=== PATIENT | male | born 1935 ===

== ENCOUNTER 2016-07-31 08:53 | Inpatient (IN) | payer MEDICARE, MEDICAID ==
[2016-07-31] MEDS ORDERED: SODIUM CHLORIDE 0.9% 10 ML FLUSH FLUSH PRN (08:58)
[2016-07-31] MEDS ORDERED: HYDROmorphone 1 MG INJECTION IV ONE (08:59)
[2016-07-31 09:23] LABS: AUTOMATED BASOPHIL 0.5 % (0-2); AUTOMATED EOSINOPHIL 2.4 % (0-5); AUTOMATED LYMPH 38.7 % (17-44); AUTOMATED MONOCYTE 8.7 % (3-10); AUTOMATED NEUTROPHIL 49.7 % (45-76); MPV 7.6 fL (7.4-10.4)
--- NOTE | 2016-07-31 09:25 | EDPRACDOC ---
- General Chief Complaint: Fall Stated Complaint: FALL Time Seen by Provider: 07/31/16 08:58 Information Source: Patient, Drafting Detailer - History of Present Illness Onset: UNKNOWN HPI: PT PRESENTS TODAY VIA EMS FOR FALL FROM [facility]. UNWITNESSED FALL AND UNKNOWN DOWN TIME. PT WAS REPORTEDLY FOUND LYING ON HIS LEFT SIDE WITH HIS LEFT LEG CURLED BENEATH HIM. PT DEMENTED, BUT CURRENTLY A/O PER NORMAL. PT C/O LEFT HIP PAIN. PT UNABLE TO FULLY EXTEND LEG, BUT LEG APPEARS SHORTENED WITH EXTERNAL ROTATION. Pain Severity: Reports: Severe Injuries/Pain Location: Reports: pelvis Reason for Fall: Reports: unknown Loss of Consciousness: unsure Modifying Factors: improves with: movement Associated Symptoms (Fall): Reports: denies symptoms Allergies/Adverse Reactions: Allergies venom-honey bee [bee venom (honey bee)] Allergy (Intermediate, Verified 09:01) Hives* Home Medications: Ambulatory Orders Amlodipine Besylate [Norvasc] 10 mg PO DAILY 12/12/13 Calcium Carbonate [Calcium Antacid] 500 mg PO Q4H PRN 12/12/13 Donepezil HCl [Aricept] 10 mg PO DAILY 12/12/13 Hydrocodone Bit/Acetaminophen [[place] 5-325 Tablet] 0.5 - 1 tabs PO BID PRN 12/12 Simvastatin [Zocor] 10 mg PO HS 12/12/13 Omeprazole 40 mg PO BID 12/29/13 Aspirin [Aspirin, Chewable] 162 mg PO DAILYWM #30 tablet 01/02/14 Ranolazine [Ranexa] 500 mg PO BID #60 ext 01/02/14 Acetaminophen [Mapap] 650 mg PO Q6H PRN 07/25/16 Acetaminophen [Mapap] 650 mg PO QID PRN 07/25/16 Acetyl/Methyl-B12/Lmefolate Ca [Metafolbic Plus Caplet] 1 tab PO DAILY 07/25/16 Ascorbic Acid [Vitamin C] 500 mg PO DAILY 07/25/16 Ergocalciferol (Vitamin D2) [Vitamin D] 50,000 units PO QMONTH 07/25/16 Ferrous Sulfate [Feosol] 325 mg PO DAILY 07/25/16 Memantine HCl [Namenda] 5 mg PO BID 07/25/16 Metoprolol Tartrate [Lopressor] 12.5 mg PO BID 07/25/16 Paroxetine HCl [Paxil] 40 mg PO QHS 07/25/16 Perphenazine 2 mg PO BID 07/25/16 Polyethylene Glycol 3350 [Miralax] 17 gm PO DAILY 07/25/16 Saccharomyces Boulardii [Florastor] 250 mg PO DAILY 07/25/16 Trazodone HCl 25 mg PO Q6H PRN 07/25/16 Vit B12/Lmefolate Ca/Vit B6/B2 [l-Methyl-Mc Tablet] 1 tab PO DAILY 07/25/16 ED Past Medical History - History Reviewed Yes Nurses notes reviewed and agree except as marked - Patient Medical History Neurological History: Reports: Seizures, Dementia (alzheimers) Cardiac History: Reports: Hypertension, Heart Attack, Hypercholesterolemia GI/ History: Reports: Gastroesophageal Reflux Psychological History: Reports: Depression, Anxiety. Denies: Substance Use Disorder - Family Medical History Reports: Hypertension, Diabetes (DTG), Cancer (MOTHER OVARIAN), Stroke (SISTER) . Denies: Cardiac Disorders - Social Medical History Smoking Status: Current status unknown Social History: Denies: Substance Use Disorder EDM Review of Systems - Review of Systems ROS Negative Except as Marked: Yes All systems reviewed and were negative except as marked ROS Unobtainable: Yes Hx Limited due to age/level of understanding of patient Constitutional: No Symptoms Reported Respiratory: No Symptoms Reported Cardiovascular: No Symptoms Reported Gastrointestinal: No Symptoms Reported Neurological: No Symptoms Reported Musculoskeletal: Hip Integumentary: No Symptoms Reported - Physical Exam Constitutional: Alert (Awake), No apparent distress Oriented to: Time, Person, Place Last recorded Vital Signs: Last Vital Signs Temp 98.0 F 07/31/16 08:55 Pulse 71 07/31/16 08:55 Resp 18 07/31/16 08:55 BP 185/92 H 07/31/16 08:55 Pulse Ox 97 07/31/16 08:55 Oxygen Pulse Oxygen Saturation 97 O2 Device Oxygen Flow Rate Fraction of Inspired Oxygen ( FIO2) - HEENT Head: Normal Eye Exam: Normal Neck: Normal, Denies Pain, Midline - Respiratory/Cardiovascular Respiratory: Normal - CTA Cardiovascular: Normal, Other (NOTED BRUISING TO LEFT CHEST WALL THAT IS YELLOW FROM PREVIOUS FALL LAST WEEK; CLAVICULAR FRACTURE) - GI Palpation: Normal Tenderness: Non tender - Musculoskeletal Back: Normal Extremities: Other (SEVERE TTP TO LEFT HIP W/OUT APPARENT DEFORMITY/BRUISING; PEDAL PULSES INTACT) - Integumentary Skin: Normal Lymphatics: Normal - Neurologic Cerebellar: Unable to Test Mood Description: Normal Thought: Coherent ED Injury/Fall Exam - Physical Exam Head Injury: no evidence of injury Extremity Exam: pelvis stable, pain with movement, unable to bear weight Skin: Normal - Andrews Coma Score Best Eye Response (Lisa): (4) open spontaneously Best Verbal Response (Lisa): (5) oriented Best Motor Response (Andrews): (6) obeys commands Lisa Total: 15 - Results 07/31/16 09:00 07/31/16 09:00 - EKG EKG #1 EKG Time: 09:29 -: Yes EKG interpreted by me Rate: bpm: 69 Kenneth: LAD Rhythm: NSR Block: RBBB Hypertrophy: None ST: Normal Comparison: 07/25/16 - Departure Disposition: Admit IP To This Hospital Condition: Fair Final Diagnosis: History of fracture of clavicle Hip fracture Qualifiers: Encounter type: initial encounter Fracture type: closed Laterality: left Qualified Code(s): S72.002A - Fracture of unspecified part of neck of left femur , initial encounter for closed fracture Dementia Qualifiers: Dementia type: unspecified type Dementia behavioral disturbance: without behavioral disturbance Qualified Code(s): F03.90 - Unspecified dementia without behavioral disturbance Instructions: RICE: Routine Care for Injuries Referrals: Ray Walker MD [Primary Care Provider] - One Week Decision to Admit Time: 10:25 Decision to admit date: 07/31/16 Decision to admit: from ED
[2016-07-31 09:33] LABS: PARTIAL THROMB. TIME 23.3 SEC (22-35); PT-INR 1.1
[2016-07-31 09:43] LABS: BLOOD UREA NITROGEN 20 MG/DL (9-20); CALCIUM 9.2 MG/DL (8.4-10.2); CALCULATED OSMOLALITY 289 MOs/Kg (270-290); CHLORIDE 110 mEq/L (98-107); GLUCOSE 104 MG/DL (70-99); SODIUM LEVEL 149 mEq/L (137-146); TOTAL PROTEIN 8.1 G/DL (6.3-8.2)
--- NOTE | 2016-07-31 09:57 | DIRPT ---
ADDENDUM REPORT: 07/31/2016 16:45 ADDENDUM: Not mentioned above, is a partially visualized fracture at the distal tip of the left clavicle, better delineated on the dedicated clavicle x-rays. Also, there are left posterior third, fourth and seventh rib fractures which are better delineated on the clavicle x-rays. Electronically Signed By: Madeline Orozco On: 07/31/2016 16:45 CLINICAL DATA: Status post fall EXAM: CHEST 1 VIEW COMPARISON: 07/25/2016 FINDINGS: There is elevation of the left diaphragm. There is no focal parenchymal opacity. There is no pleural effusion or pneumothorax. The heart and mediastinal contours are unremarkable. The osseous structures are unremarkable. IMPRESSION: No active disease. Electronically Signed: By: Madeline Orozco On: 07/31/2016 09:54
--- NOTE | 2016-07-31 09:58 | DIRPT ---
CLINICAL DATA: Unwitnessed fall with left leg deformity. Initial encounter. EXAM: BILATERAL HIP (WITH PELVIS) 3-4 VIEWS COMPARISON: None. FINDINGS: Acute intertrochanteric left femur fracture with mild posterior impaction. No evidence of right hip fracture. The pelvic ring shows no fracture or diastasis. Osteopenia and atherosclerosis. IMPRESSION: Acute intertrochanteric left femur fracture. Electronically Signed By: [place] Tillman M.D. On: 07/31/2016 09:55
[2016-07-31] MEDS ORDERED: FENTANYL 100 MCG/2 ML VIAL IV ONE (10:00)
[2016-07-31] MEDS ORDERED: PROPOFOL 200 MG/20 ML VIAL IV ONE (10:00)
[2016-07-31] MEDS ORDERED: LIDOCAINE 100 MG PFS IV ONE (10:00)
--- NOTE | 2016-07-31 10:02 | DIRPT ---
CLINICAL DATA: Pain following fall EXAM: CT HEAD WITHOUT CONTRAST TECHNIQUE: Contiguous axial images were obtained from the base of the skull through the vertex without intravenous contrast. COMPARISON: November 02, 2015 FINDINGS: Moderate diffuse atrophy is stable. There is no intracranial mass, hemorrhage, extra-axial fluid collection, or midline shift. There is extensive small vessel disease throughout the centra semiovale bilaterally, stable. There is evidence of a prior small infarct at the level of the genu of the left internal capsule. No acute infarct evident. There are stable postoperative bony changes in the superior left temporal and posterior right frontal bones. Bony calvarium otherwise appears intact. Visualized mastoid air cells are clear. Visualized orbits appear symmetric and unremarkable bilaterally. IMPRESSION: Stable postoperative bony defects. Atrophy with supratentorial small vessel disease, stable. Prior small infarct at genu of left internal capsule. No intracranial mass, hemorrhage, or acute appearing infarct. No extra-axial fluid collections. Electronically Signed By: Nathanael Adan III, M.D. On: 07/31/2016 09:59
[2016-07-31] MEDS ORDERED: Albuterol/Ipratropium Neb 3 ML NEB NEB PRN (10:47)
--- NOTE | 2016-07-31 10:54 | HISTPHYS ---
- Chief Complaint left hip pain - History of Present Illness 80 yo aam brought to emergency room from care home facility for evaluation of severe left hip pain and inability to bear weight on on the left. Due to underlying dementia patient himself unable to provide any specific details. According to detention beta patient has sustained a fall early on today and landed on the left side. Patient developed severe pain and was not able to put any weight on that leg. He was brought to emergency for evaluation was found to have left-sided intertrochanteric hip fracture. Medical consultation was phoned in for inpatient treatment. - Medical History Cardiac History: Reports: Coronary Artery Disease, Hypertension, Heart Attack, Hypercholesterolemia, Valvular Heart Disease Respiratory History: Reports: COPD, Pneumonia, Emphysema GI/ History: Reports: Renal Disease, Gastroesophageal Reflux, BPH Musculoskeletal History: Reports: Osteoarthritis Systemic History: Reports: No Significant History Neurological History: Reports: Cerebrovascular Accident, Seizures, Dementia ( alzheimers) Psychological History: Reports: Depression, Anxiety. Denies: Substance Use Disorder - Medictions/Allergies Allergies venom-honey bee [bee venom (honey bee)] Allergy (Intermediate, Verified 09:01) Hives* Current Medication List: Reviewed Home Medications Amlodipine Besylate [Norvasc] 10 mg PO DAILY 12/12/13 Calcium Carbonate [Calcium Antacid] 500 mg PO Q4H PRN 12/12/13 Donepezil HCl [Aricept] 10 mg PO DAILY 12/12/13 Hydrocodone Bit/Acetaminophen [[place] 5-325 Tablet] 0.5 - 1 tabs PO BID PRN 12/12 Simvastatin [Zocor] 10 mg PO HS 12/12/13 Omeprazole 40 mg PO BID 12/29/13 Aspirin [Aspirin, Chewable] 162 mg PO DAILYWM #30 tablet 01/02/14 Ranolazine [Ranexa] 500 mg PO BID #60 ext 01/02/14 Acetaminophen [Mapap] 650 mg PO Q6H PRN 07/25/16 Acetaminophen [Mapap] 650 mg PO QID PRN 07/25/16 Acetyl/Methyl-B12/Lmefolate Ca [Metafolbic Plus Caplet] 1 tab PO DAILY 07/25/16 Ascorbic Acid [Vitamin C] 500 mg PO DAILY 07/25/16 Ergocalciferol (Vitamin D2) [Vitamin D] 50,000 units PO QMONTH 07/25/16 Ferrous Sulfate [Feosol] 325 mg PO DAILY 07/25/16 Memantine HCl [Namenda] 5 mg PO BID 07/25/16 Metoprolol Tartrate [Lopressor] 12.5 mg PO BID 07/25/16 Paroxetine HCl [Paxil] 40 mg PO QHS 07/25/16 Perphenazine 2 mg PO BID 07/25/16 Polyethylene Glycol 3350 [Miralax] 17 gm PO DAILY 07/25/16 Saccharomyces Boulardii [Florastor] 250 mg PO DAILY 07/25/16 Trazodone HCl 25 mg PO Q6H PRN 07/25/16 Vit B12/Lmefolate Ca/Vit B6/B2 [l-Methyl-Mc Tablet] 1 tab PO DAILY 07/25/16 - Family History Reports: Hypertension, Diabetes (DTG), Cancer (MOTHER OVARIAN), Stroke (SISTER) . Denies: Cardiac Disorders - Social History Travel Outside of [place] in the Last 3 Months?: No Lives: in Penitentiary/SNF Smoking Status: Current status unknown Social History: Denies: Substance Use Disorder - Review of Systems Constitutional: Loss of Appetite, Weakness Eyes: No Symptoms Reported Ears: No Symptoms Reported Nose: No Symptoms Reported Mouth: No Symptoms Reported Throat/Neck: No Symptoms Reported Respiratory: Cough, Dyspnea Cardiovascular: No Symptoms Reported Gastrointestinal: Constipation, Heartburn Genitourinary: Nocturia Neurological: Dizziness, Gait Difficulty, Weakness, Mood Changes, Memory Changes , Changes in Orientation Musculoskeletal:: Arthritis Integumentary: No Symptoms Reported Allergic/Immunologic: No Symptoms Reported Hematologic: No Symptoms Reported Endocrine: No Symptoms Reported Psychiatric: No Symptoms Reported - Physical Exam Vital Signs: Initial Vitals Temperature 98.0 F 07/31/16 08:55 Pulse Rate 71 07/31/16 08:55 Respiratory Rate 18 07/31/16 08:55 Blood Pressure 185/92 H 07/31/16 08:55 Pulse Oxygen Saturation 97 07/31/16 08:55 - Focused CV Perfusion Exam Vital Signs: Last Vital Signs Temp 98.0 F 07/31/16 08:55 Pulse 71 07/31/16 08:55 Resp 18 07/31/16 08:55 BP 185/92 H 07/31/16 08:55 Pulse Ox 97 07/31/16 08:55 - Diagnostic Findings Allergies venom-honey bee [bee venom (honey bee)] Allergy (Intermediate, Verified 09:01) Hives* Initial Vitals Temperature 98.0 F 07/31/16 08:55 Pulse Rate 71 07/31/16 08:55 Respiratory Rate 18 07/31/16 08:55 Blood Pressure 185/92 H 07/31/16 08:55 Pulse Oxygen Saturation 97 07/31/16 08:55 07/31/16 09:00 07/31/16 09:00 Abnormal Lab Results 07/31/16 07/31/16 09:00 09:00 RBC 3.79 L Hgb 12.9 L D Hct 37.4 L MCV 99 H MCH 33.9 H Sodium 149 H Chloride 110 H Glucose 104 H ALT 20 L Last Vital Signs Temp 98.0 F 07/31/16 08:55 Pulse 71 07/31/16 08:55 Resp 18 07/31/16 08:55 BP 185/92 H 07/31/16 08:55 Pulse Ox 97 07/31/16 08:55 Patient Name: KATTY LICEA LOC: ED : 1935 AGE: 80 Order Date:07/31/16 Date of Service:12/10 Report # [id number] Ord Physician: Gisela Pearce Exam # [id number] Emergency Physician: Lupillo Dawson DO Exam(s): [id number] RAD/DG HIP COMPLETE 2+V-BILAT CLINICAL DATA: Unwitnessed fall with left leg deformity. Initial encounter. EXAM: BILATERAL HIP (WITH PELVIS) 3-4 VIEWS COMPARISON: None. FINDINGS: Acute intertrochanteric left femur fracture with mild posterior impaction. No evidence of right hip fracture. The pelvic ring shows no fracture or diastasis. Osteopenia and atherosclerosis. IMPRESSION: Acute intertrochanteric left femur fracture. Electronically Signed By: [place] Tillman M.D. On: 07/31/2016 09:55 Patient Name: KATTY LICEA LOC: ED : 1935 AGE: 80 Order Date:07/31/16 Date of Service:12/10 Report # [id number] Ord Physician: Gisela Pearce Exam # [id number] Emergency Physician: Lupillo Dawson DO Exam(s): [id number] CT/CT HEAD W/O CM CLINICAL DATA: Pain following fall EXAM: CT HEAD WITHOUT CONTRAST TECHNIQUE: Contiguous axial images were obtained from the base of the skull through the vertex without intravenous contrast. COMPARISON: November 02, 2015 FINDINGS: Moderate diffuse atrophy is stable. There is no intracranial mass, hemorrhage, extra-axial fluid collection, or midline shift. There is extensive small vessel disease throughout the centra semiovale bilaterally, stable. There is evidence of a prior small infarct at the level of the genu of the left internal capsule. No acute infarct evident. There are stable postoperative bony changes in the superior left temporal and posterior right frontal bones. Bony calvarium otherwise appears intact. Visualized mastoid air cells are clear. Visualized orbits appear symmetric and unremarkable bilaterally. IMPRESSION: Stable postoperative bony defects. Atrophy with supratentorial small vessel disease, stable. Prior small infarct at genu of left internal capsule. No intracranial mass, hemorrhage, or acute appearing infarct. No extra-axial fluid collections. Electronically Signed By: Nathanael Adan III, M.D. On: 07/31/2016 09:59 Electronically Signed By: Nathanael Adan III, MD Patient Name: KATTY LICEA LOC: ED : 1935 AGE: 80 Order Date:07/31/16 Date of Service:12/10 Report # [id number] Ord Physician: Gisela Pearce Exam # [id number] Emergency Physician: Lupillo Dawson DO Exam(s): [id number] RAD/DG CHEST 1V CLINICAL DATA: Status post fall EXAM: CHEST 1 VIEW COMPARISON: 07/25/2016 FINDINGS: There is elevation of the left diaphragm. There is no focal parenchymal opacity. There is no pleural effusion or pneumothorax. The heart and mediastinal contours are unremarkable. The osseous structures are unremarkable. IMPRESSION: No active disease. Electronically Signed By: Madeline Orozco On: 07/31/2016 09:54 Electronically Signed By: Madeline Orozco MD Electronically Signed Date/Time: [id number] Dictate Date/Time: 07/31/16 0953 - Assessment (1) Closed left hip fracture S72.002A - FRACTURE OF UNSP PART OF NECK OF LEFT FEMUR, INIT Acute Present on Admission: Yes Qualifiers: Encounter type: initial encounter Qualified Code(s): S72.002A - Fracture of unspecified part of neck of left femur, initial encounter for closed fracture Patient be admitted to medical monitor bed. Ortho has been consulted and will defer management this problem to Orthopedics. (2) Dementia F03.90 - UNSPECIFIED DEMENTIA WITHOUT BEHAVIORAL DISTURBANCE Chronic Present on Admission: Yes Qualifiers: Dementia type: unspecified type Dementia behavioral disturbance: without behavioral disturbance Qualified Code(s): F03.90 - Unspecified dementia without behavioral disturbance Continue supportive care and medications. Patient at high risk for in-hospital delirium and may require chemical and or physical restraints for safety (3) GERD (gastroesophageal reflux disease) K21.9 - GASTRO-ESOPHAGEAL REFLUX DISEASE WITHOUT ESOPHAGITIS Chronic Present on Admission: Yes Qualifiers: Esophagitis presence: without esophagitis Qualified Code(s): K21.9 - Gastro -esophageal reflux disease without esophagitis Continue PPI (4) Left hip pain M25.552 - PAIN IN LEFT HIP Acute Present on Admission: Yes Will scheduled Tylenol around the clock and p.r.n. morphine and oxycodone. (5) CVA (cerebral vascular accident) I63.9 - CEREBRAL INFARCTION, UNSPECIFIED Chronic Present on Admission: Yes Qualifiers: Laterality of affected vessel: right Continue aspirin monitor neuro status (6) CAD (coronary artery disease) I25.10 - ATHSCL HEART DISEASE OF [place] CORONARY ARTERY W/O ANG PCTRS Chronic Present on Admission: Yes Qualifiers: Coronary Disease-Associated Artery/Lesion type: [place] artery [place] vs. transplanted heart: [place] heart Associated angina: without angina Qualified Code(s): I25.10 - Atherosclerotic heart disease of [place] coronary artery without angina pectoris Stable on medical therapy at lower activity level. (7) Dyslipidemia E78.5 - HYPERLIPIDEMIA, UNSPECIFIED Chronic Present on Admission: Yes (8) Osteoporosis M81.0 - AGE-RELATED OSTEOPOROSIS W/O CURRENT PATHOLOGICAL FRACTURE Chronic Present on Admission: Yes Continue Zocor (9) Adult failure to thrive R62.7 - ADULT FAILURE TO THRIVE Chronic Present on Admission: Yes Continue nutritional support (10) HTN (hypertension) I10 - ESSENTIAL (PRIMARY) HYPERTENSION Chronic Present on Admission: Yes Qualifiers: Hypertension type: essential hypertension Qualified Code(s): I10 - Essential (primary) hypertension Continue meds keep SBP around 140 (11) Fracture of clavicle, left, closed S42.002A - FRACTURE OF UNSP PART OF LEFT CLAVICLE, INIT FOR CLOS FX Acute Qualifiers: Encounter type: initial encounter Clavicle location: lateral end Fracture alignment: displaced Qualified Code(s): S42.032A - Displaced fracture of lateral end of left clavicle, initial encounter for closed fracture Continue splint (12) UTI (urinary tract infection) N39.0 - URINARY TRACT INFECTION, SITE NOT SPECIFIED Suspected Present on Admission: Yes Qualifiers: Urinary tract infection type: acute cystitis Recent treatment of antibiotic for UTI. UA and urine culture will be obtained Case Care Discussed with: Patient, Consultants, Nursing Staff, Gas Flow Regulator Total Time: 60 min. Critical Care: No Code: 12138 (12+)
[2016-07-31] MEDS: FERROUS SULFATE 324 MG TAB PO SCH (12:21)
[2016-07-31] MEDS: VITAMINS,PRENATAL TABLET PO SCH (12:21)
[2016-07-31] MEDS: ASCORBIC ACID 500 MG TAB PO SCH (12:21)
[2016-07-31] MEDS: PROBIOTIC BLEND TAB PO SCH (12:21)
[2016-07-31] MEDS ORDERED: MORPHINE 2 MG/ML INJECTION IV PRN (12:58)
[2016-07-31] MEDS ORDERED: MORPHINE 2 MG/ML INJECTION IV ONE (13:01)
--- NOTE | 2016-07-31 13:10 | PCM.ORTHCO ---
Consultation Date: 07/31/16 Reason for Consult: Fracture (LEFT HIP) - History of Present Illness Mr. Canales is an 80 year old male who presents with left hip pain following a fall this morning. He was found lying on the floor this morning at his rehab facility. He is unable to bear weight on the left side. He ambulates without AD prior to his injury. He does have a history of worsening dementia. His daughter provided much of the information. Patient was recently diagnosed with a left clavicle fracture as well and is currently being treated for pneumonia. He denies SOB or chest pain. Chief Complaint: left hip pain - Past Medical and Surgical History Cardiac History: Reports: Hypertension, Heart Attack Psychological History: Reports: Depression, Anxiety Neurological History: Reports: Cerebrovascular Accident, Seizures, Dementia Allergies venom-honey bee [bee venom (honey bee)] Allergy (Intermediate, Verified 09:01) Hives* Home Medications Amlodipine Besylate [Norvasc] 10 mg PO DAILY 12/12/13 Calcium Carbonate [Calcium Antacid] 1,000 mg PO DAILY 12/12/13 Donepezil HCl [Aricept] 10 mg PO DAILY 12/12/13 Simvastatin [Zocor] 10 mg PO HS 12/12/13 Aspirin [Aspirin, Chewable] 162 mg PO DAILYWM #30 tablet 01/02/14 Ranolazine [Ranexa] 500 mg PO BID #60 ext 01/02/14 Acetaminophen [Mapap] 650 mg PO Q6H PRN 07/25/16 Acetaminophen [Mapap] 650 mg PO Q8H PRN 07/25/16 Acetyl/Methyl-B12/Lmefolate Ca [Metafolbic Plus Caplet] 1 tab PO DAILY 07/25/16 Ascorbic Acid [Vitamin C] 500 mg PO DAILY 07/25/16 Ferrous Sulfate [Feosol] 325 mg PO DAILY 07/25/16 Memantine HCl [Namenda] 5 mg PO BID 07/25/16 Metoprolol Tartrate [Lopressor] 12.5 mg PO BID 07/25/16 Paroxetine HCl [Paxil] 40 mg PO QHS 07/25/16 Perphenazine 2 mg PO BID 07/25/16 Polyethylene Glycol 3350 [Miralax] 17 gm PO DAILY 07/25/16 Saccharomyces Boulardii [Florastor] 250 mg PO DAILY 07/25/16 Trazodone HCl 25 mg PO Q6H PRN 07/25/16 Vit B12/Lmefolate Ca/Vit B6/B2 [l-Methyl-Mc Tablet] 1 tab PO DAILY 07/25/16 Calcium Carbonate 1,000 mg PO Q4H PRN 07/31/16 Cholecalciferol (Vitamin D3) [Optimal D3] 50,000 unit PO .MONTHLY ON THE Ertapenem [Invanz] 1 gm IM DAILY 07/31/16 Omeprazole [Prilosec] 20 mg PO BID 07/31/16 - Social History Smoking Status: Current status unknown - Family History Reports: Hypertension, Diabetes (DTG), Cancer (MOTHER OVARIAN), Stroke (SISTER) . Denies: Cardiac Disorders - Review of Systems Yes Hx Limited due to age/level of understanding of patient Respiratory: negative: Shortness of Breath Cardiovascular: negative: Chest Pain Musculoskeletal:: Joint Pain (left hip) - Physical Exam Vital Signs: Initial Vitals Temperature 98.0 F 07/31/16 08:55 Pulse Rate 71 07/31/16 08:55 Respiratory Rate 18 07/31/16 08:55 Blood Pressure 185/92 H 07/31/16 08:55 Pulse Oxygen Saturation 97 07/31/16 08:55 Constitutional: No apparent distress, Confused, Well appearing Oriented to: Not Oriented - HEENT Head: Normal - Musculoskeletal Extremities: Pedal Pulse, Other (LLE is shortened and externally rotated. Plantarflexion and dorsiflexion intact. SITLT.). negative: Calf Tenderness - Neurologic Mood Description: Normal - Lab Results 07/31/16 09:00 07/31/16 09:00 - Diagnostic Findings Exam(s): [id number] RAD/DG HIP COMPLETE 2+V-BILAT CLINICAL DATA: Unwitnessed fall with left leg deformity. Initial encounter. EXAM: BILATERAL HIP (WITH PELVIS) 3-4 VIEWS COMPARISON: None. FINDINGS: Acute intertrochanteric left femur fracture with mild posterior impaction. No evidence of right hip fracture. The pelvic ring shows no fracture or diastasis. Osteopenia and atherosclerosis. IMPRESSION: Acute intertrochanteric left femur fracture. Electronically Signed By: [place] Tillmna M.D. On: 07/31/2016 09:55 Electronically Signed By: Jefe Tillman MD Electronically Signed Date/Time: [id number] Dictate Date/Time: 07/31/16 0954 - Assessment/Plan (1) Hip fracture S72.009A - FRACTURE OF UNSP PART OF NECK OF UNSP FEMUR, INIT Acute initial encounter closed left S72.002A - Fracture of unspecified part of neck of left femur, initial encounter for closed fracture Case Care Discussed with: Patient, Family Plan: Risks and benefits of surgery discussed with patient and family. Risks include but not limited to infection, damage to blood vessels and nerves, need for further surgery, blood clots, and risks of anesthesia. Agree to proceed. Plan for IM tex left hip with Dr. Holcomb later today Continue pain management NPO Strict bed rest. Will plan to place patient into sling for left arm and will further work-up his left clavicle fracture post-operatively
[2016-07-31] MEDS ORDERED: CHLORHEXIDINE (HIBICLENS) 4 OZ BOTTLE TOP ONE ×2 (14:00→21:00)
[2016-07-31] MEDS ORDERED: CEFAZOLIN 1 GM VIAL IV ONE (14:00)
[2016-07-31] MEDS ORDERED: HYDROmorphone 1 MG INJECTION IV PRN ×2 (14:12)
[2016-07-31] MEDS ORDERED: ONDANSETRON HCL 4 MG ODT TAB PO PRN (14:12)
[2016-07-31] MEDS ORDERED: LABETALOL 20 MG/4 ML SYRINGE IV PRN (14:12)
[2016-07-31] MEDS ORDERED: FENTANYL 100 MCG/2 ML VIAL IV PRN ×2 (14:12)
[2016-07-31] MEDS ORDERED: ONDANSETRON HCL 4 MG/2 ML VIAL IV PRN (14:12)
[2016-07-31] MEDS ORDERED: hydrALAZINE 20 MG/ML VIAL IV PRN (14:12)
--- NOTE | 2016-07-31 14:13 | SC.ANESPOS ---
Post-Anesthesia Note LOC: Drowsy Post-Anesthesia Assessment: Awake, Returned to Baseline, Hemodynamically Stable , Pain Control Adequate Phase I & II Recovery Complete: Yes Apparent Anesthesia Complication: No : N - Vital Signs Blood Pressure: 150/92 Pulse: 87 Resp Rate: 16 O2 Sat: 96 Temp: 98 F
--- NOTE | 2016-07-31 14:19 | HIM.ANES ---
Anesthesia Evaluation & Plan - Focused Review of Systems Cardiac History: Yes: Hx Hypertension, Hx Heart Attack, Hx Cardiac Disorders, Hx Abnormal Cholesterol/Hyperlipidemia, Hx Cardiomegaly HEENT: Yes: Cataracts, Temporomandibular Joint Disease (TMJ) Respiratory: Yes: Hx Snoring Gastrointestinal: Yes: Hx Gastroesophageal Reflux Disease, Hx Colonoscopy Neurological/Musculoskeletal: Yes: HX Cerebrovascular Accident, Hx Alzheimer's Disease, Hx Dementia, Hx Seizures, Hx Migraine Psychological: Yes Hx Anxiety, Yes Hx Depression HX Other Psyco/Soc Problems: DEPRESSION Blood/Autoimmune: No: Hx Blood Transfusions Smoking Status: Current status unknown Past Social History: Denies: Substance Use Disorder - Focused Physical Exam NPO since: midnight Mallampati: Class II Thyromental Distance: Greater than 3 Neck: Full Range of Motion Dental: Removable Dental Work Cardiovascular/Chest: Normal Respiratory: Lungs clear Any problems with anesthesia, including nausea and vomiting?: No Any relatives with a history of Malignant Hyperthermia?: No Beta Juanpablo given (if appropriate): N/A Other: Problem List Problem Status Onset CVA (cerebral vascular accident) Acute Closed left hip fracture Acute GERD (gastroesophageal reflux disease) Acute Hip fracture Acute History of fracture of clavicle Acute Left hip pain Acute Adult failure to thrive Chronic CAD (coronary artery disease) Chronic Dementia Chronic Dyslipidemia Chronic Osteoporosis Chronic Advanced dementia Acute Chest pain Acute Chest wall pain Acute PT/PTT/INR/ PT 11.0 SEC (9.2-11.2) 07/31/16 09:00 INR 1.1 07/31/16 09:00 APTT 23.3 SEC (22-35) 07/31/16 09:00 Allergies Allergy/AdvReac Type Severity Reaction Status Date / Time venom-honey bee Allergy Intermediate Hives* Verified 07/31/16 09:01 [bee venom (honey bee)] Home Medications Medication Instructions Recorded Last Taken Type Amlodipine Besylate [Norvasc] 10 mg PO DAILY 12/12/13 07/30/16 09:00 History Calcium Carbonate [Calcium Antacid] 1,000 mg PO DAILY 12/12/13 07/30/16 08:00 History Donepezil HCl [Aricept] 10 mg PO DAILY 12/12/13 07/30/16 09:00 History Simvastatin [Zocor] 10 mg PO HS 12/12/13 07/30/16 21:00 History Aspirin [Aspirin, Chewable] 162 mg PO DAILYWM #30 tablet 01/02/14 07/30/16 09: 00 Rx Ranolazine [Ranexa] 500 mg PO BID #60 ext 01/02/14 07/30/16 21:00 Rx Acetaminophen [Mapap] 650 mg PO Q6H PRN 07/25/16 07/24/16 History Acetaminophen [Mapap] 650 mg PO Q8H PRN 07/25/16 07/31/16 History Acetyl/Methyl-B12/Lmefolate Ca 1 tab PO DAILY 07/25/16 07/30/16 09:00 History [Metafolbic Plus Caplet] Ascorbic Acid [Vitamin C] 500 mg PO DAILY 07/25/16 07/30/16 09:00 History Ferrous Sulfate [Feosol] 325 mg PO DAILY 07/25/16 07/30/16 09:00 History Memantine HCl [Namenda] 5 mg PO BID 07/25/16 07/30/16 21:00 History Metoprolol Tartrate [Lopressor] 12.5 mg PO BID 07/25/16 07/30/16 21:00 History Paroxetine HCl [Paxil] 40 mg PO QHS 07/25/16 07/30/16 21:00 History Perphenazine 2 mg PO BID 07/25/16 07/30/16 21:00 History Polyethylene Glycol 3350 [Miralax] 17 gm PO DAILY 07/25/16 07/30/16 09:00 History Saccharomyces Boulardii [Florastor] 250 mg PO DAILY 07/25/16 07/30/16 09:00 History Trazodone HCl 25 mg PO Q6H PRN 07/25/16 06/30/16 History Vit B12/Lmefolate Ca/Vit B6/B2 1 tab PO DAILY 07/25/16 07/30/16 09:00 History [l-Methyl-Mc Tablet] Calcium Carbonate 1,000 mg PO Q4H PRN 07/31/16 Unknown History Cholecalciferol (Vitamin D3) 50,000 unit PO .MONTHLY ON THE 07/31/16 Unknown History [Optimal D3] Ertapenem [Invanz] 1 gm IM DAILY 07/31/16 07/30/16 21:00 History Omeprazole [Prilosec] 20 mg PO BID 07/31/16 07/31/16 06:00 History Height and Weight Patient's weight 135 lb 9 oz Weight (Calculated Kilograms) 61.490 Vital Signs Temperature 98 F 07/31/16 14:13 Pulse Rate 87 07/31/16 14:13 Respiratory Rate 16 07/31/16 14:13 Blood Pressure 150/92 07/31/16 14:13 Pulse Oxygen Saturation 96 07/31/16 14:13 - Anesthetic Plan Anesthesia Type: General ASA Class: 4 -: I have examined this patient and reviewed the medical record. The patient has been assessed prior to anesthesia. Risks and benefits of anesthesia and anesthetic technique options have been discussed and all questions answered. The patient accepts the risk and desires me to proceed with the planned anesthetic.
--- NOTE | 2016-07-31 15:38 | HIMOPRPT ---
DATE OF PROCEDURE: 07/31/16 PREOPERATIVE DIAGNOSIS: Left hip intertrochanteric fracture. POSTOPERATIVE DIAGNOSIS: Left hip intertrochanteric fracture. PROCEDURE PERFORMED: Left hip gamma nail, hip intramedullary nail. SURGEON: Saroj Holcomb MD. SKEIN BLEACHER: LANDON Barnes ANESTHESIA: General endotracheal Anesthesia. IV FLUIDS: Crystalloids ESTIMATED BLOOD LOSS: 50 ml SPECIMENS: none. COMPLICATIONS: None. IMPLANTS: Titanium [employer] [place] gamma 3 nail [id number] millimeters long, proximal locking screw 100 millimeters long, BRIEF HISTORY: KATTY LICEA is a 80 year-old M patient. Patient has history of dementia and is currently a resident at [facility] at the rehab. He apparently was found on the floor. He had complaints of left hip pain. X-rays showed evidence of left hip intertrochanteric fracture. Based on the nature of the fracture, intramedullary nailing was recommended for right hip intertrochanteric fracture. Informed consent was obtained from the patient. The patient understood that the risks involved in surgery include infection, damage to the nerve, blood vessel, need for further surgery, implant failure, continued pain, DVT, pulmonary embolism, stroke, and even . The patient was seen on the day of surgery in the preop holding area. Surgical site was marked. The patient was then wheeled back into the operating room. DESCRIPTION OF THE PROCEDURE: Proper time-out was performed. 2 grams of IV Ancef were given. The patient was given proper anesthesia. Left lower extremity was placed in traction and right lower extremity was placed in well- leg gonzalez. The left lower extremity was prepped and draped. We started with an incision proximal to the greater trochanter. AP and lateral C-arm images were used. Entrance was created using a curved bone awl. We then inserted a guidewire across the fracture site into the distal fragment. The femur was then reamed. We reamed up to 14.5 millimeter diameter reamer. We then measured the size of the nail as [id number] millimeters long nail. We then procured if 400 millimeters gamma 3 nail and this was inserted in an antegrade fashion. This nail was 125 degrees neck shaft angle. We then drilled for the proximal lag screw. The length of the lag screw was measured at 100 millimeters. We then inserted a 100-millimeter long lag screw proximally. The nail was locked in place. We then placed a distal static lock through the distal part of the nail using freehand technique. Final AP and lateral x-rays were obtained. The wound was copiously irrigated with normal saline and closed in layers. The patient tolerated the procedure very well and was taken to the recovery room in stable condition. DISPOSITION: . The patient would also be started on [Aspirin 325mg Bid] .
--- NOTE | 2016-07-31 16:38 | DIRPT ---
CLINICAL DATA: Fall, possible fracture EXAM: LEFT CLAVICLE - 2+ VIEWS COMPARISON: 07/25/2016 FINDINGS: There is mild displaced fracture distal aspect of the left clavicle. Mild displaced fracture left third, fourth, fifth and seventh rib. IMPRESSION: Mild displaced fracture of distal aspect left clavicle. Minimal displaced fracture of the left third, fourth fifth and seventh rib. Electronically Signed By: Fabio Gordillo M.D. On: 07/31/2016 16:36
[2016-07-31] MEDS: D5W/NS 1,000 ML IV SCH ×2 (16:57)
[2016-07-31] MEDS ORDERED: ENOXAPARIN 40 MG/0.4 ML PFS SQ SCH (18:00)
[2016-07-31] MEDS ORDERED: Vaccine Screening Complete SCH ×2 (19:00→22:00)
[2016-07-31] MEDS ORDERED: PAROXETINE HCL 40 MG PO SCH (21:00)
[2016-07-31] MEDS: METOPROLOL TARTRATE 25 MG TAB PO SCH (21:40)
[2016-07-31] MEDS: MEMANTINE 5 MG TAB PO SCH (21:40)
[2016-07-31] MEDS: PERPHENAZINE 2 MG TAB PO SCH (21:40)
[2016-07-31] MEDS: PAROXETINE 20 MG TAB PO SCH (21:41)
[2016-07-31] MEDS: TRAZODONE 50 MG TAB PO PRN (21:41)
[2016-07-31] MEDS: RANOLAZINE 500 MG EXT RELEASE TAB PO SCH (21:41)
[2016-07-31] MEDS: SIMVASTATIN 10 MG TAB PO SCH (21:42)
[2016-08-01] MEDS: D5W/NS 1,000 ML IV SCH ×2 (04:59→11:10)
[2016-08-01] MEDS: PANTOPRAZOLE 40 MG TAB PO SCH (04:59)
[2016-08-01 05:15] LABS: LEUKOCYTES/URINE NEG (NEGATIVE); NITRITE/URINE NEG (NEGATIVE); URINE OCCULT BLOOD NEG (NEG/TRACE)
[2016-08-01] MEDS ORDERED: CEFAZOLIN 1 GM VIAL IV ONE (07:00)
[2016-08-01 07:09] LABS: AUTOMATED BASOPHIL 0.1 % (0-2); AUTOMATED LYMPH 20.1 % (17-44); AUTOMATED MONOCYTE 11.1 % (3-10); AUTOMATED NEUTROPHIL 68.7 % (45-76); MPV 7.9 fL (7.4-10.4)
--- NOTE | 2016-08-01 07:17 | PCM.ORTHBL ---
- Subjective Post Op Day: 1 Daily Assessment - Patient: Reports: No new complaints, Still having pain, Pain is less, Other (History is difficult given mental status). Denies: Shortness of breath, Nausea, Vomiting - Objective / Physical Exam Vital Signs: Temperature: 98.6 F (08/01/16 06:00) HR: 85 (08/01/16 06:00)RR: 18 (08/01/16 06: 00) BP: 93/57 (08/01/16 06:00)Pulse Ox: 98 (08/01/16 06:00) General: Alert, Cooperative, No acute distress, Well appearing Musculoskeletal / Extremities: 2 plus Dorsalis Pedis Pulse, Dressing Clean/Dry/ Intact. negative: Tenderness (no calf tenderness) Neurological: Positive Sensation First Dorsal Web Space, Sensation to light touch intact, Extensor Hallicus Longus Intact, Flexor Hallicus Longus Intact, Dorsiflexion Intact, Plantarflexion Intact Laboratory/Diagnostics Reviewed: Exam(s): [id number] RAD/DG CLAVICLE-L CLINICAL DATA: Fall, possible fracture EXAM: LEFT CLAVICLE - 2+ VIEWS COMPARISON: 07/25/2016 FINDINGS: There is mild displaced fracture distal aspect of the left clavicle. Mild displaced fracture left third, fourth, fifth and seventh rib. IMPRESSION: Mild displaced fracture of distal aspect left clavicle. Minimal displaced fracture of the left third, fourth fifth and seventh rib. Electronically Signed By: Fabio Gordillo M.D. On: 07/31/2016 16:36 - Assessment and Plan (1) Hip fracture Acute S72.009A - FRACTURE OF UNSP PART OF NECK OF UNSP FEMUR, INIT initial encounter closed left S72.002A - Fracture of unspecified part of neck of left femur, initial encounter for closed fracture (2) Fracture of clavicle, left, closed Acute S42.002A - FRACTURE OF UNSP PART OF LEFT CLAVICLE, INIT FOR CLOS FX initial encounter lateral end displaced S42.032A - Displaced fracture of lateral end of left clavicle, initial encounter for closed fracture Plan: POD#1 s/p left IM nail PT/OT/WBAT; NWB LUE TEDS/SCDS/Lovenox for 14 days post-op for DVT prophylaxis Continue pain management Given appearane of his mildly displaced clavicular fracture, will allow out of sling and attempt weightbearing as tolerated on LUE to aid in ambulation with walker at this time. D/C planning
[2016-08-01 07:35] LABS: BLOOD UREA NITROGEN 33 MG/DL (9-20); CALCIUM 8.8 MG/DL (8.4-10.2); CALCULATED OSMOLALITY 295 MOs/Kg (270-290); CHLORIDE 111 mEq/L (98-107); GLUCOSE 138 MG/DL (70-99); SODIUM LEVEL 149 mEq/L (137-146)
[2016-08-01] MEDS ORDERED: FLU VACCINE (Afluria) 0.5 ML DOSE IM ONE ×2 (08:00)
[2016-08-01] MEDS: ASPIRIN (CHEWABLE) 81 MG TAB PO SCH (08:44)
[2016-08-01] MEDS: METOPROLOL TARTRATE 25 MG TAB PO SCH ×2 (08:45→20:56)
[2016-08-01] MEDS: PEG-ELECTROLYTE 17 GM PACK PO SCH (08:45)
[2016-08-01] MEDS: DONEPEZIL HCL 10 MG TAB PO SCH (08:45)
[2016-08-01] MEDS: MEMANTINE 5 MG TAB PO SCH ×2 (08:46→20:30)
[2016-08-01] MEDS: AMLODIPINE 10 MG TAB PO SCH (08:46)
[2016-08-01] MEDS: PERPHENAZINE 2 MG TAB PO SCH ×2 (08:46→20:30)
[2016-08-01] MEDS: RANOLAZINE 500 MG EXT RELEASE TAB PO SCH ×2 (08:48→20:30)
[2016-08-01] MEDS ORDERED: LMEFOLATE CA PO SCH ×2 (09:00)
[2016-08-01] MEDS ORDERED: [UNRECOGNIZED DRUG - OTHER] PO SCH (09:00)
[2016-08-01] MEDS ORDERED: METHYL B12 PO SCH (09:00)
[2016-08-01] MEDS ORDERED: ACETYL PO SCH (09:00)
[2016-08-01] MEDS ORDERED: SACCHAROMYCES BOULARDII 250 MG PO SCH (09:00)
[2016-08-01] MEDS ORDERED: B2 PO SCH (09:00)
[2016-08-01] MEDS ORDERED: VIT B6 PO SCH (09:00)
[2016-08-01] MEDS ORDERED: Non-Formulary Medication ITEM (Ferrous Sulfate [Feosol] 325 MG) PO SCH (09:00)
[2016-08-01] MEDS ORDERED: [UNRECOGNIZED DRUG - OTHER] PO SCH (09:00)
[2016-08-01] MEDS ORDERED: VIT B12 PO SCH (09:00)
[2016-08-01] MEDS: VITAMINS,PRENATAL TABLET PO SCH (11:37)
[2016-08-01] MEDS: FERROUS SULFATE 324 MG TAB PO SCH (11:37)
[2016-08-01] MEDS: PROBIOTIC BLEND TAB PO SCH (11:38)
[2016-08-01] MEDS: ASCORBIC ACID 500 MG TAB PO SCH (11:39)
[2016-08-01] MEDS ORDERED: D5W/NS 1,000 ML IV SCH (12:00)
[2016-08-01] MEDS ORDERED: Medication Special Instructions SCH ×2 (12:00)
[2016-08-01] MEDS: D5-1/2NS/KCL 20 mEq 1,000 ML IV SCH ×2 (16:19→20:59)
[2016-08-01] MEDS ORDERED: ENOXAPARIN 30 MG/0.3 ML PFS SQ SCH (18:00)
[2016-08-01] MEDS: OXYCODONE HCL 5 MG TABLET PO PRN (20:29)
[2016-08-01] MEDS: SIMVASTATIN 10 MG TAB PO SCH (20:31)
[2016-08-01] MEDS: PAROXETINE 20 MG TAB PO SCH (20:56)
--- NOTE | 2016-08-01 21:42 | GENMEDPROG ---
Subjective Note: Patient in bed responsive follows commands. Disoriented and confabulatory. Left hip pain control. Denies and difficulties breathing cough phlegm production. No behavior problems related dementia no anger agitation or hostility. P.o. intake poor Notes Reviewed: Yes Events from last night noted and discussed with Clinical Staff Current Medication List: Reviewed Currently: Reports: SCHMITT, Constipation - Physical Examination Vital Signs and I&O: Last Vital Signs Temp 98.7 F 08/01/16 15:40 Pulse 80 08/01/16 15:40 Resp 20 08/01/16 15:40 BP 107/67 08/01/16 15:40 Pulse Ox 97 08/01/16 10:15 Oxygen Pulse Oxygen Saturation 97 O2 Device Room Air Oxygen Flow Rate 10 Fraction of Inspired Oxygen ( FIO2) Intake & Output 07/29/16 07/30/16 07/31/16 08/01/16 23:59 23:59 23:59 23:59 Intake Total 383 1350 Output Total 50 Balance 333 1350 Patient's weight 61.49 kg 61.802 kg General: Alert, Cooperative, No acute distress, Well appearing HEENT: Normal, PERRLA, EOMI, Anicteric Sclera Neck: Non-tender, Normal Trachea alignment, Limited range of motion Lymphatics: Normal Respiratory: Diminished, Rhonchi Cardiovascular: Regular rate, Normal S1, Normal S2, Murmurs GI: Normal bowel sounds, Soft, Non tender, No hepatospenomegaly, No masses Extremities/Musculoskeletal: Edema, DJD Skin: Warm,Dry and Intact, No rashes, No breakdown, No significant lesion Neurological: Normal speech, Cranial nerves 3-12 NL Psych/Mental Status: Confabulating, Confused, Disoriented Lab/DI/Studies Reviewed: Allergies venom-honey bee [bee venom (honey bee)] Allergy (Intermediate, Verified 09:01) Hives* 08/01/16 06:40 08/01/16 06:40 - Assessment (1) Closed left hip fracture Acute S72.002A - FRACTURE OF UNSP PART OF NECK OF LEFT FEMUR, INIT Qualifiers: Encounter type: initial encounter Qualified Code(s): S72.002A - Fracture of unspecified part of neck of left femur, initial encounter for closed fracture Comment/Plan: Status post surgical repair. Continue postop ortho care. Continue PTOT (2) Acute kidney injury Acute N17.9 - ACUTE KIDNEY FAILURE, UNSPECIFIED Comment/Plan: Creatinine up to 1.9 today. Maintain hydration avoid any nephrotoxins monitor BMP (3) Dementia Chronic F03.90 - UNSPECIFIED DEMENTIA WITHOUT BEHAVIORAL DISTURBANCE Qualifiers: Dementia type: unspecified type Dementia behavioral disturbance: without behavioral disturbance Qualified Code(s): F03.90 - Unspecified dementia without behavioral disturbance Comment/Plan: Continue supportive care and medications. No significant behavior problems (4) GERD (gastroesophageal reflux disease) Chronic K21.9 - GASTRO-ESOPHAGEAL REFLUX DISEASE WITHOUT ESOPHAGITIS Qualifiers: Esophagitis presence: without esophagitis Qualified Code(s): K21.9 - Gastro -esophageal reflux disease without esophagitis Comment/Plan: Continue PPI (5) Left hip pain Acute M25.552 - PAIN IN LEFT HIP Comment/Plan: Will scheduled Tylenol around the clock and p.r.n. morphine and oxycodone. (6) CVA (cerebral vascular accident) Chronic I63.9 - CEREBRAL INFARCTION, UNSPECIFIED Qualifiers: Laterality of affected vessel: right Comment/Plan: Continue aspirin monitor neuro status (7) CAD (coronary artery disease) Chronic I25.10 - ATHSCL HEART DISEASE OF [place] CORONARY ARTERY W/O ANG PCTRS Qualifiers: Coronary Disease-Associated Artery/Lesion type: [place] artery [place] vs. transplanted heart: [place] heart Associated angina: without angina Qualified Code(s): I25.10 - Atherosclerotic heart disease of [place] coronary artery without angina pectoris Comment/Plan: Stable on medical therapy at lower activity level. (8) Dyslipidemia Chronic E78.5 - HYPERLIPIDEMIA, UNSPECIFIED Comment/Plan: Continue statin (9) Osteoporosis Chronic M81.0 - AGE-RELATED OSTEOPOROSIS W/O CURRENT PATHOLOGICAL FRACTURE Comment/Plan: Continue calcium and vitamin-D (10) Adult failure to thrive Chronic R62.7 - ADULT FAILURE TO THRIVE Comment/Plan: Continue nutritional support (11) HTN (hypertension) Chronic I10 - ESSENTIAL (PRIMARY) HYPERTENSION Qualifiers: Hypertension type: essential hypertension Qualified Code(s): I10 - Essential (primary) hypertension Comment/Plan: Continue meds keep SBP around 140 (12) Fracture of clavicle, left, closed Acute S42.002A - FRACTURE OF UNSP PART OF LEFT CLAVICLE, INIT FOR CLOS FX Qualifiers: Encounter type: initial encounter Clavicle location: lateral end Fracture alignment: displaced Qualified Code(s): S42.032A - Displaced fracture of lateral end of left clavicle, initial encounter for closed fracture Comment/Plan: Continue splint (13) UTI (urinary tract infection) Suspected N39.0 - URINARY TRACT INFECTION, SITE NOT SPECIFIED Qualifiers: Urinary tract infection type: acute cystitis Comment/Plan: Recent treatment of antibiotic for UTI. UA and urine culture will be obtained Case Care Discussed with: Patient, Consultants, Nursing Staff, Physical Therapy , Youth Liaison Officer Education/Counseling Given To: Patient Education/Counseling Given Regarding: Diagnosis, Treatment, Prognosis, Follow Up Total Time: 45 min. Critical Care: No Code: 48412 (12+)
[2016-08-01] MEDS: TRAZODONE 50 MG TAB PO PRN (21:47)
[2016-08-02] MEDS ORDERED: NS 1,000 ML IV ONE ×2 (00:33)
--- NOTE | 2016-08-02 00:41 | GENMEDPROG ---
Note CALLED TO EVALUATE PATIENT FOR + SEPSIS SCREENING TOOL: Patient is recovering from hip surgery, has tachypnea and tachycardia, no actual evidence of acute infection. The UTI documentation is referring not to a current infection but to one that was recently treated. No documented fever, will give fluids, recheck labs and hold off on antibiotics at this time. Patient actually meets criteria for SIRS, but not sepsis. Dante Redding MD
[2016-08-02 01:06] LABS: AUTOMATED BASOPHIL 0.3 % (0-2); AUTOMATED LYMPH 12.9 % (17-44); AUTOMATED NEUTROPHIL 77.8 % (45-76); MPV 7.9 fL (7.4-10.4)
--- NOTE | 2016-08-02 01:35 | DIRPT ---
CLINICAL DATA: Acute onset of noisy respirations. Wheezing and confusion. Initial encounter. EXAM: PORTABLE CHEST 1 VIEW COMPARISON: Chest radiograph performed 07/31/2016 FINDINGS: There is persistent elevation of the left hemidiaphragm. Mild left basilar opacity may reflect atelectasis or possibly mild pneumonia. Pulmonary vascularity is at the upper limits of normal. No definite pleural effusion or pneumothorax is seen. The cardiomediastinal silhouette remains normal in size. No acute osseous abnormalities are identified. IMPRESSION: Persistent elevation of the left hemidiaphragm. Mild left basilar opacity may reflect atelectasis or possibly mild pneumonia. Electronically Signed By: Rohit Berry M.D. On: 08/02/2016 01:32
[2016-08-02 01:55] LABS: LEUKOCYTES/URINE NEG (NEGATIVE); NITRITE/URINE NEG (NEGATIVE); URINE OCCULT BLOOD NEG (NEG/TRACE); WBC/URINE 0-2 (0-2)
[2016-08-02] MEDS: OXYCODONE HCL 5 MG TABLET PO PRN (01:57)
[2016-08-02] MEDS ORDERED: CEFTRIAXONE 1 GM in D5W 100 ML IV SCH (02:00)
[2016-08-02] MEDS: NITROGLYCERINE 2 % OINTMENT PACK TOP SCH ×3 (05:12→16:59)
[2016-08-02] MEDS: PANTOPRAZOLE 40 MG TAB PO SCH (05:12)
[2016-08-02] MEDS ORDERED: FUROSEMIDE 40 MG/4 ML VIAL IV ONE (06:00)
[2016-08-02] MEDS: PROBIOTIC BLEND TAB PO SCH (07:40)
[2016-08-02] MEDS: VITAMINS,PRENATAL TABLET PO SCH (07:40)
[2016-08-02] MEDS: RANOLAZINE 500 MG EXT RELEASE TAB PO SCH ×2 (07:40→20:11)
[2016-08-02] MEDS: AMLODIPINE 10 MG TAB PO SCH (07:40)
[2016-08-02] MEDS: FERROUS SULFATE 324 MG TAB PO SCH (07:40)
[2016-08-02] MEDS: DONEPEZIL HCL 10 MG TAB PO SCH (07:41)
[2016-08-02] MEDS: PEG-ELECTROLYTE 17 GM PACK PO SCH (07:41)
[2016-08-02] MEDS: ASCORBIC ACID 500 MG TAB PO SCH (07:41)
[2016-08-02] MEDS: ASPIRIN (CHEWABLE) 81 MG TAB PO SCH (07:41)
[2016-08-02] MEDS: METOPROLOL TARTRATE 25 MG TAB PO SCH ×2 (07:41→21:07)
[2016-08-02] MEDS: PERPHENAZINE 2 MG TAB PO SCH ×2 (07:41→20:11)
[2016-08-02] MEDS: MEMANTINE 5 MG TAB PO SCH ×2 (07:41→20:11)
[2016-08-02] MEDS ORDERED: FLU VACCINE (Afluria) 0.5 ML DOSE IM ONE (08:00)
--- NOTE | 2016-08-02 08:17 | PCM.ORTHBL ---
- Subjective Post Op Day: 2 Daily Assessment - Patient: Reports: No new complaints, Ambulating with Physical Therapist (has been limited), Other (little response from patient today due to drowsiness. He is receiving blood transfusion.) - Objective / Physical Exam Vital Signs: Temperature: 98.1 F (08/02/16 08:12) HR: 91 (08/02/16 08:12)RR: 20 (08/02/16 08: 12) BP: 131/92 (08/02/16 08:12)Pulse Ox: 100 (08/02/16 08:12) General: Cooperative, No acute distress, Well appearing Musculoskeletal / Extremities: 2 plus Dorsalis Pedis Pulse, Dressing Clean/Dry/ Intact. negative: Tenderness (no calf tenderness) Neurological: Positive Sensation First Dorsal Web Space, Sensation to light touch intact, Extensor Hallicus Longus Intact, Flexor Hallicus Longus Intact, Dorsiflexion Intact, Plantarflexion Intact Laboratory/Diagnostics Reviewed: 08/02/16 02:43 08/01/16 06:40 - Assessment and Plan (1) Hip fracture Acute S72.009A - FRACTURE OF UNSP PART OF NECK OF UNSP FEMUR, INIT initial encounter closed left S72.002A - Fracture of unspecified part of neck of left femur, initial encounter for closed fracture (2) Fracture of clavicle, left, closed Acute S42.002A - FRACTURE OF UNSP PART OF LEFT CLAVICLE, INIT FOR CLOS FX initial encounter lateral end displaced S42.032A - Displaced fracture of lateral end of left clavicle, initial encounter for closed fracture Plan: POD#2 s/p left hip IM nail PT/OT/WBAT TEDS/SCDS; Patient appears to have had an FL, treatment as per medicine Continue pain management, this was adjusted/decreased yesterday due to weakness with PT Will follow D/C planning.
--- NOTE | 2016-08-02 10:26 | GENMEDPROG ---
Subjective Note: Patient in bed responsive follows commands confused and disoriented. Left hip pain control. Denies and difficulties breathing cough phlegm production. Notes Reviewed: Yes Events from last night noted and discussed with Clinical Staff Current Medication List: Reviewed Currently: Reports: Cough, SCHMITT, Constipation DVT Prophylaxis: Yes - Physical Examination Vital Signs and I&O: Last Vital Signs Temp 98.2 F 08/02/16 10:02 Pulse 82 08/02/16 10:02 Resp 20 08/02/16 10:02 BP 124/66 08/02/16 10:02 Pulse Ox 98 08/02/16 10:02 Oxygen Pulse Oxygen Saturation 98 O2 Device Nasal Cannula Oxygen Flow Rate 2 Fraction of Inspired Oxygen ( FIO2) Intake & Output 07/30/16 07/31/16 08/01/16 08/02/16 23:59 23:59 23:59 23:59 Intake Total 383 1350 653 Output Total 50 Balance 333 1350 653 Patient's weight 61.49 kg 61.802 kg General: Cooperative, No acute distress, Well appearing HEENT: Normal, PERRLA, EOMI, Anicteric Sclera Neck: Non-tender, Limited range of motion Lymphatics: Normal Respiratory: Diminished, Rhonchi Cardiovascular: Regular rate, Normal S1, Normal S2, Murmurs GI: Normal bowel sounds, Soft, Non tender, No hepatospenomegaly Extremities/Musculoskeletal: Clubbing, Cyanosis, DJD Skin: Warm,Dry and Intact, No rashes, No breakdown, No significant lesion Neurological: Normal speech, Cranial nerves 3-12 NL Psych/Mental Status: Anxious, Confused, Disoriented Lab/DI/Studies Reviewed: Allergies venom-honey bee [bee venom (honey bee)] Allergy (Intermediate, Verified 09:01) Hives* Last Vital Signs Temp 98.2 F 08/02/16 10:02 Pulse 82 08/02/16 10:02 Resp 20 08/02/16 10:02 BP 124/66 08/02/16 10:02 Pulse Ox 98 08/02/16 10:02 08/02/16 02:43 08/01/16 06:40 Abnormal Lab Results 07/31/16 08/01/16 08/02/16 09:00 10:51 00:53 WBC 11.4 H RBC 2.49 L Hgb 8.3 L D Hct 24.9 L MCV 100 H MCH 33.5 H Neut % (Auto) 77.8 H Lymph % (Auto) 12.9 L Absolute Neuts (auto) 8.78 H D-Dimer Quant (PE/DVT) POC Capillary Glucose 128 H Myoglobin Troponin I Urine Protein Urine RBC Crossmatch See Detail 08/02/16 08/02/16 08/02/16 01:30 01:35 01:35 WBC RBC Hgb Hct MCV MCH Neut % (Auto) Lymph % (Auto) Absolute Neuts (auto) D-Dimer Quant (PE/DVT) 5229 H POC Capillary Glucose Myoglobin 823.2 H Troponin I 0.48 H* Urine Protein 1+ H Urine RBC 2-5 H Crossmatch 08/02/16 08/02/16 02:43 04:17 WBC RBC Hgb 8.7 L Hct 26.4 L MCV MCH Neut % (Auto) Lymph % (Auto) Absolute Neuts (auto) D-Dimer Quant (PE/DVT) POC Capillary Glucose Myoglobin 548.4 H Troponin I 1.30 H* D Urine Protein Urine RBC Crossmatch - Assessment (1) CAD (coronary artery disease) Chronic I25.10 - ATHSCL HEART DISEASE OF [place] CORONARY ARTERY W/O ANG PCTRS Qualifiers: Coronary Disease-Associated Artery/Lesion type: [place] artery [place] vs. transplanted heart: [place] heart Associated angina: without angina Qualified Code(s): I25.10 - Atherosclerotic heart disease of [place] coronary artery without angina pectoris Comment/Plan: Now with abnormal troponins. Continue aspirin beta-lawrence Ranexa and topical nitrates. 2D echo pending. Add full-dose Lovenox. Monitor serial troponins. (2) Anemia Acute D64.9 - ANEMIA, UNSPECIFIED Comment/Plan: Transfuse 2 units of pooled red blood cells today. Monitor counts (3) Closed left hip fracture Acute S72.002A - FRACTURE OF UNSP PART OF NECK OF LEFT FEMUR, INIT Qualifiers: Encounter type: initial encounter Qualified Code(s): S72.002A - Fracture of unspecified part of neck of left femur, initial encounter for closed fracture Comment/Plan: Status post surgical repair. Continue postop ortho care. Continue PTOT (4) Dementia Chronic F03.90 - UNSPECIFIED DEMENTIA WITHOUT BEHAVIORAL DISTURBANCE Qualifiers: Dementia type: unspecified type Dementia behavioral disturbance: without behavioral disturbance Qualified Code(s): F03.90 - Unspecified dementia without behavioral disturbance Comment/Plan: Continue supportive care and medications. No significant behavior problems (5) Acute kidney injury Acute N17.9 - ACUTE KIDNEY FAILURE, UNSPECIFIED Comment/Plan: Creatinine up to 1.9 today. Maintain hydration avoid any nephrotoxins monitor BMP (6) GERD (gastroesophageal reflux disease) Chronic K21.9 - GASTRO-ESOPHAGEAL REFLUX DISEASE WITHOUT ESOPHAGITIS Qualifiers: Esophagitis presence: without esophagitis Qualified Code(s): K21.9 - Gastro -esophageal reflux disease without esophagitis Comment/Plan: Continue PPI (7) Left hip pain Acute M25.552 - PAIN IN LEFT HIP Comment/Plan: Will scheduled Tylenol around the clock and p.r.n. morphine and oxycodone. (8) CVA (cerebral vascular accident) Chronic I63.9 - CEREBRAL INFARCTION, UNSPECIFIED Qualifiers: Laterality of affected vessel: right Comment/Plan: Continue aspirin monitor neuro status (9) Dyslipidemia Chronic E78.5 - HYPERLIPIDEMIA, UNSPECIFIED Comment/Plan: Continue statin (10) Osteoporosis Chronic M81.0 - AGE-RELATED OSTEOPOROSIS W/O CURRENT PATHOLOGICAL FRACTURE Comment/Plan: Continue calcium and vitamin-D (11) Adult failure to thrive Chronic R62.7 - ADULT FAILURE TO THRIVE Comment/Plan: Continue nutritional support (12) HTN (hypertension) Chronic I10 - ESSENTIAL (PRIMARY) HYPERTENSION Qualifiers: Hypertension type: essential hypertension Qualified Code(s): I10 - Essential (primary) hypertension Comment/Plan: Continue meds keep SBP around 140 (13) Fracture of clavicle, left, closed Acute S42.002A - FRACTURE OF UNSP PART OF LEFT CLAVICLE, INIT FOR CLOS FX Qualifiers: Encounter type: initial encounter Clavicle location: lateral end Fracture alignment: displaced Qualified Code(s): S42.032A - Displaced fracture of lateral end of left clavicle, initial encounter for closed fracture Comment/Plan: Continue splint (14) UTI (urinary tract infection) Suspected N39.0 - URINARY TRACT INFECTION, SITE NOT SPECIFIED Qualifiers: Urinary tract infection type: acute cystitis Comment/Plan: Recent treatment of antibiotic for UTI. UA and urine culture will be obtained Case Care Discussed with: Patient, Nursing Staff, Other Education/Counseling Given To: Patient Education/Counseling Given Regarding: Diagnosis, Treatment, Prognosis, Follow Up Total Time: 45 min . Critical Care: No Code: 72026 (12+)
[2016-08-02] MEDS ORDERED: ENOXAPARIN 60 MG/0.6 ML PFS SQ SCH (10:30)
[2016-08-02] MEDS: D5-1/2NS/KCL 20 mEq 1,000 ML IV SCH ×2 (11:03→17:02)
[2016-08-02 11:23] LABS: AUTOMATED BASOPHIL 0.2 % (0-2); AUTOMATED EOSINOPHIL 0.3 % (0-5); AUTOMATED LYMPH 17.5 % (17-44); AUTOMATED MONOCYTE 11.8 % (3-10); AUTOMATED NEUTROPHIL 70.2 % (45-76); MPV 7.8 fL (7.4-10.4)
--- NOTE | 2016-08-02 11:30 | CAPUECHO ---
INDICATION: ABNORMAL TROPONINS HEIGHT: 170.2 cm (5 ft 7.0 in) WEIGHT: 61.7 kg (136.0 lbs) BP: 124/66 BSA: 1.945511 m MEASUREMENTS 2D RVIDd: 3.2 cm LVOT Diam: 2.2 cm LA Diam: 5.0 cm EF Biplane: 58.84 % LAESV MOD A4C: 100.0 ml LAESV MOD A2C: 82.7 ml LAESV Index (A-L): 58.19 ml/m M-MODE IVSd: 1.1 cm LVIDd: 4.6 cm LVPWd: 1.1 cm LVIDs: 3.6 cm EF(Teich): 44 % Ao Diam: 3.3 cm DOPPLER MV E Loco: 0.58 m/s MV A Loco: 1.39 m/s MV PHT: 52.78 ms MVA By PHT: 4.17 cm LVOT Vmax: 1.07 m/s AV Vmax: 1.30 m/s NELIA Vmax, Pt: 3.01 cm TR Vmax: 2.65 m/s TR maxP mmHg FINDINGS ------- Procedure:2D images, m-mode, color and spectral Doppler were obtained and reviewed. ECG rhythm:Sinus rhythm. Study quality:This was a technically adequate study. Suboptimal subcostal views. Left Ventricle:The left ventricular cavity size and wall thickness are upper normal. The anteroap ical and apical segments are akinetic. Overall left ventricular systolic function is mild-modera tely impaired with, an EF between 40 - 45 %. The diastolic filling pattern indicates impaired rela xation. Right Ventricle:The right ventricle is normal in size and function. Left Atrium:Left atrium is severely dilated by volume. Right Atrium:The right atrium is normal in size and function. Aortic Valve:The aortic valve is trileaflet with minimal valve sclerosis. Good mobility. There is mild aortic regurgitation. Mitral Valve:Normal appearing mitral valve. Mild mitral annular calcification present. Mild joel ral regurgitation is present. Tricuspid Valve:The tricuspid valve appears structurally normal. Mild tricuspid regurgitation pres ent. Unable to estimate RVSP due to inadequate visualization of IVC. Pulmonic Valve:The pulmonic valve is normal. M ild pulmonic regurgitation. Aorta:The aortic root, ascending aorta and aortic arch appear normal. IVC:The inferior vena cava was not well visualized. Pericardium:There is no pericardial effusion. General comments:Pleural effusion is suggested. CONCLUSIONS 1. upper normal LV size, with apical and anteroapical akinesis indicative of prior infarction. Mil d depressed LVEF 44%. Impaired relaxation (diastolic dysfunction) 2. mitral annular calcificatio n with mild regurgitation, dilated left atrium 3. minimal aortic sclerosis with mild aortic regur gitation 4. normal right heart size/function, mild TR, unable to estimate pulm artery pressure Electronically Signed By: Vineet Paez MD-- Electronically Signed On: 11:28:06
[2016-08-02 12:07] LABS: BLOOD UREA NITROGEN 34 MG/DL (9-20); CALCIUM 8.5 MG/DL (8.4-10.2); CALCULATED OSMOLALITY 296 MOs/Kg (270-290); CHLORIDE 113 mEq/L (98-107); GLUCOSE 106 MG/DL (70-99); SODIUM LEVEL 150 mEq/L (137-146)
--- NOTE | 2016-08-02 12:35 | CAPUEKG ---
[place], [place] Test Date: 2016-08-02 Pat Name: KATTY LICEA Department: Room: 439 Gender: Male Consumer Relations Complaint Clerk: BO : Requested By: Order Number: Reading MD: Vineet Paez Measurements Intervals [place] Rate: 81 P: 66 SD: 166 QRS: -14 QRSD: 106 T: 72 QT: 452 QTc: 525 Interpretive Statements Normal sinus rhythm Left atrial enlargement Inferior/apical infarct, age undetermined ST \T\ T wave abnormality, consider anterior ischemia Little change from 07/31/2016 Prolonged QT Abnormal ECG Electronically Signed On 08-02-16 12:35:06 EST by Vineet Paez [id number]> [id number]
[2016-08-02] MEDS: SIMVASTATIN 10 MG TAB PO SCH (20:11)
[2016-08-02] MEDS: PAROXETINE 20 MG TAB PO SCH (20:11)
[2016-08-02] MEDS: ENOXAPARIN 60 MG/0.6 ML PFS SQ SCH (20:15)
[2016-08-03] MEDS: NITROGLYCERINE 2 % OINTMENT PACK TOP SCH ×5 (01:54→23:33)
[2016-08-03 03:36] LABS: AUTOMATED BASOPHIL 0.4 % (0-2); AUTOMATED EOSINOPHIL 1.1 % (0-5); AUTOMATED LYMPH 19.9 % (17-44); AUTOMATED MONOCYTE 11.4 % (3-10); AUTOMATED NEUTROPHIL 67.2 % (45-76); MPV 8.1 fL (7.4-10.4)
[2016-08-03 03:47] LABS: BLOOD UREA NITROGEN 28 MG/DL (9-20); CALCIUM 8.3 MG/DL (8.4-10.2); CALCULATED OSMOLALITY 291 MOs/Kg (270-290); CHLORIDE 115 mEq/L (98-107); GLUCOSE 120 MG/DL (70-99); SODIUM LEVEL 148 mEq/L (137-146)
[2016-08-03] MEDS: D5-1/2NS/KCL 20 mEq 1,000 ML IV SCH ×4 (04:10→23:01)
[2016-08-03] MEDS: PANTOPRAZOLE 40 MG TAB PO SCH (05:44)
[2016-08-03] MEDS: ASPIRIN (CHEWABLE) 81 MG TAB PO SCH (07:24)
[2016-08-03] MEDS: ASCORBIC ACID 500 MG TAB PO SCH (07:25)
[2016-08-03] MEDS: PEG-ELECTROLYTE 17 GM PACK PO SCH (07:25)
[2016-08-03] MEDS: FERROUS SULFATE 324 MG TAB PO SCH (07:26)
[2016-08-03] MEDS: VITAMINS,PRENATAL TABLET PO SCH (07:26)
[2016-08-03] MEDS: MEMANTINE 5 MG TAB PO SCH ×2 (07:26→20:46)
[2016-08-03] MEDS: PROBIOTIC BLEND TAB PO SCH (07:26)
[2016-08-03] MEDS: AMLODIPINE 5 MG TAB PO SCH (07:26)
[2016-08-03] MEDS: RANOLAZINE 500 MG EXT RELEASE TAB PO SCH ×2 (07:27→20:46)
[2016-08-03] MEDS: PERPHENAZINE 2 MG TAB PO SCH ×2 (07:27→20:45)
[2016-08-03] MEDS: METOPROLOL TARTRATE 25 MG TAB PO SCH ×2 (07:27→21:01)
[2016-08-03] MEDS: ENOXAPARIN 60 MG/0.6 ML PFS SQ SCH ×2 (07:31→21:01)
[2016-08-03] MEDS: DONEPEZIL HCL 10 MG TAB PO SCH (07:32)
[2016-08-03] MEDS ORDERED: FLU VACCINE (Afluria) 0.5 ML DOSE IM ONE (08:00)
--- NOTE | 2016-08-03 08:27 | PCM.ORTHBL ---
- Subjective Post Op Day: 3 Daily Assessment - Patient: Reports: No new complaints, Feels better, Other ( Patient is more alert and responsive this morning.). Denies: Ambulating with Physical Therapist (held yesterday), Shortness of breath, Nausea - Objective / Physical Exam Vital Signs: Temperature: 97.6 F (08/03/16 07:21) HR: 86 (08/03/16 07:38)RR: 20 (08/03/16 07: 21) BP: 124/61 (08/03/16 07:21)Pulse Ox: 96 (08/03/16 07:21) General: Alert, Cooperative, No acute distress, Well appearing Musculoskeletal / Extremities: 2 plus Dorsalis Pedis Pulse, Dressing Clean/Dry/ Intact. negative: Tenderness (no significant calf tenderness) Neurological: Positive Sensation First Dorsal Web Space, Sensation to light touch intact, Extensor Hallicus Longus Intact, Flexor Hallicus Longus Intact, Dorsiflexion Intact, Plantarflexion Intact Laboratory/Diagnostics Reviewed: 08/03/16 03:20 08/03/16 03:20 - Assessment and Plan (1) Hip fracture Acute S72.009A - FRACTURE OF UNSP PART OF NECK OF UNSP FEMUR, INIT initial encounter closed left S72.002A - Fracture of unspecified part of neck of left femur, initial encounter for closed fracture (2) Fracture of clavicle, left, closed Acute S42.002A - FRACTURE OF UNSP PART OF LEFT CLAVICLE, INIT FOR CLOS FX initial encounter lateral end displaced S42.032A - Displaced fracture of lateral end of left clavicle, initial encounter for closed fracture Plan: POD#3 s/p IM nail left hip PT/OT/WBAT when medically stable Continue pain management TEDS/SCDS/ Patient currently on Lovenox and Aspirin per medicine due to cardiac changes D/C planning.
--- NOTE | 2016-08-03 09:17 | GENMEDPROG ---
Chief Complaint: Left hip fracture, non ST elevation myocardial infarction Subjective Note: Doing well, patient is sleeping this morning easily arousable. Denies any chest pain, shortness of breath or hip pain at this time. Notes Reviewed: Yes Events from last night noted and discussed with Clinical Staff Current Medication List: Reviewed Currently: Reports: Cough, SCHMITT DVT Prophylaxis: Yes - Physical Examination Vital Signs and I&O: Last Vital Signs Temp 97.6 F 08/03/16 07:21 Pulse 86 08/03/16 07:38 Resp 20 08/03/16 07:21 BP 124/61 08/03/16 07:21 Pulse Ox 96 08/03/16 07:21 Oxygen Pulse Oxygen Saturation 96 O2 Device Nasal Cannula Oxygen Flow Rate 2 Fraction of Inspired Oxygen ( FIO2) Intake & Output 08/01/16 08/02/16 08/03/16 08/04/16 06:59 06:59 06:59 06:59 Intake Total 869 1517 2688 Output Total 50 175 Balance 819 1517 2513 Patient's weight 61.802 kg 69.91 kg 69.91 kg General: Alert, Cooperative, No acute distress, Well appearing HEENT: EOMI (Sclera white) Neck: Normal Trachea alignment, Normal inspection Respiratory: Normal - CTA (Clear to auscultation blaterally,no wheezing,rales, rhonchi.No use of accessory muscles) Cardiovascular: Regular rate, No Gallops,Rubs/Murmurs GI: Normal bowel sounds, Soft, Non tender (non distended) Extremities/Musculoskeletal: Other (Normal Tone). negative: Edema, Cyanosis - Assessment (1) NSTEMI (non-ST elevated myocardial infarction) Acute I21.4 - NON-ST ELEVATION (NSTEMI) MYOCARDIAL INFARCTION Comment/Plan: Hemodynamically stable, asymptomatic. Troponins continue to rise, above 6 this morning. Patient is on appropriate medication including beta-lawrence, aspirin, full anticoagulation with Lovenox. Patient had echocardiogram yesterday with evidence of wall motion abnormality and prior infarction. Cardiology has been formally consulted earlier this morning. EKG reviewed this morning, some evidence of possible lateral ischemia. Will speak with Cardiology personally as well. Will recheck EKG this morning. (2) Closed left hip fracture Acute S72.002A - FRACTURE OF UNSP PART OF NECK OF LEFT FEMUR, INIT Qualifiers: Encounter type: initial encounter Qualified Code(s): S72.002A - Fracture of unspecified part of neck of left femur, initial encounter for closed fracture Comment/Plan: Status post surgical repair. Continue postop ortho care. Continue PTOT (3) History of fracture of clavicle Acute Z87.81 - PERSONAL HISTORY OF (HEALED) TRAUMATIC FRACTURE (4) Dementia Chronic F03.90 - UNSPECIFIED DEMENTIA WITHOUT BEHAVIORAL DISTURBANCE Qualifiers: Dementia type: unspecified type Dementia behavioral disturbance: without behavioral disturbance Qualified Code(s): F03.90 - Unspecified dementia without behavioral disturbance Comment/Plan: Continue supportive care and medications. No significant behavior problems (5) Dyslipidemia Chronic E78.5 - HYPERLIPIDEMIA, UNSPECIFIED Comment/Plan: Continue statin (6) GERD (gastroesophageal reflux disease) Chronic K21.9 - GASTRO-ESOPHAGEAL REFLUX DISEASE WITHOUT ESOPHAGITIS Qualifiers: Esophagitis presence: without esophagitis Qualified Code(s): K21.9 - Gastro -esophageal reflux disease without esophagitis Comment/Plan: Continue PPI (7) HTN (hypertension) Chronic I10 - ESSENTIAL (PRIMARY) HYPERTENSION Qualifiers: Hypertension type: essential hypertension Qualified Code(s): I10 - Essential (primary) hypertension Comment/Plan: Continue meds keep SBP around 140 - Plan In summary this patient is acutely and critically ill. The patient requires treatment of vital organ failure and measures to prevent further life- threatening deterioration of the above conditions. I personally reviewed and ordered lab testing, as well as imaging. I reviewed old medical records from previous hospitalizations as available, and spent the time mentioned below in critical care of this patient including counseling and coordination of care. Total Time: 65
--- NOTE | 2016-08-03 11:35 | CAPUEKG ---
[place], [place] Test Date: 2016-08-03 Pat Name: KATTY LICEA Department: Room: 439 Gender: Male Clinic Assistant: : Requested By: Order Number: Reading MD: Vineet Paez Measurements Intervals [place] Rate: 71 P: 58 [place]: 158 QRS: -8 QRSD: 106 T: 185 QT: 568 QTc: 617 Interpretive Statements Normal sinus rhythm Deepening symmetrical T inversions anteriorly, consistent with known acute non-STEMI Prolonged QT Abnormal ECG Since yesterday's tracing, T inversion more prominent. Electronically Signed On 08-03-16 11:35:07 EST by Vineet Paez <[email or web address]> [id number]
--- NOTE | 2016-08-03 11:44 | PCM.CARDCO ---
Consultation Date: 08/03/16 Requesting Physician: Richard Yo (acute NSTEMI) Consulting Doctor: Vineet Paez Travel Outside of [place] in the Last 3 Months?: No Consultation Note: History of Present Illness: Pt is 80 yo BM , [place] resident with hx chronic dementia on Aricept, DM, dyslipidemia, CAD and prior AK per records. He is very lethargic, poorly responsive to verbal stim, unable to provide meaningful hx or review of sx. He was admitted 2016 after sustaining injury, with dx of left inter-trochanteric hip fx, underwent fixation. For unclear reasons, troponins checked post-operatively and have shown sequential elevations. Consulted informally by Dr. Vaz yesterday, formal request put in this AM by Dr. Yo. Pt lethargic as noted, mumbles "no" to inquiry about pain. No distress Past Medical History: CAD, DM, HBP, dyslipideami, dementia per records Allergies venom-honey bee [bee venom (honey bee)] Allergy (Intermediate, Verified 09:01) Hives* Home Medications Amlodipine Besylate [Norvasc] 10 mg PO DAILY 12/12/13 Calcium Carbonate [Calcium Antacid] 1,000 mg PO DAILY 12/12/13 Donepezil HCl [Aricept] 10 mg PO DAILY 12/12/13 Simvastatin [Zocor] 10 mg PO HS 12/12/13 Aspirin [Aspirin, Chewable] 162 mg PO DAILYWM #30 tablet 01/02/14 Ranolazine [Ranexa] 500 mg PO BID #60 ext 01/02/14 Acetaminophen [Mapap] 650 mg PO Q6H PRN 07/25/16 Acetaminophen [Mapap] 650 mg PO Q8H PRN 07/25/16 Acetyl/Methyl-B12/Lmefolate Ca [Metafolbic Plus Caplet] 1 tab PO DAILY 07/25/16 Ascorbic Acid [Vitamin C] 500 mg PO DAILY 07/25/16 Ferrous Sulfate [Feosol] 325 mg PO DAILY 07/25/16 Memantine HCl [Namenda] 5 mg PO BID 07/25/16 Metoprolol Tartrate [Lopressor] 12.5 mg PO BID 07/25/16 Paroxetine HCl [Paxil] 40 mg PO QHS 07/25/16 Perphenazine 2 mg PO BID 07/25/16 Polyethylene Glycol 3350 [Miralax] 17 gm PO DAILY 07/25/16 Saccharomyces Boulardii [Florastor] 250 mg PO DAILY 07/25/16 Trazodone HCl 25 mg PO Q6H PRN 07/25/16 Vit B12/Lmefolate Ca/Vit B6/B2 [l-Methyl-Mc Tablet] 1 tab PO DAILY 07/25/16 Calcium Carbonate 1,000 mg PO Q4H PRN 07/31/16 Cholecalciferol (Vitamin D3) [Optimal D3] 50,000 unit PO .MONTHLY ON THE Ertapenem [Invanz] 1 gm IM DAILY 07/31/16 Omeprazole [Prilosec] 20 mg PO BID 07/31/16 Social History: Traveled outside the [place] in the last 3 months? No Current status unknown [] Review of Systems: unobtainable, b/o dementia Physical Examination: Temperature: 97.5 F (08/03/16 11:11)HR: 84 (08/03/16 11:11)RR: 20 (08/03/16 11: 11)BP: 109/68 (08/03/16 11:11) SAT:97 (08/03/16 11:11) [] Physical Exam GEN: thin, elderly in NAD VS: as above HEENT: no JVD, supple CHEST: clear anteriorly COR: RR, normal s1, s2 Gr 1/ 6SEM, no s3 or MR murmur ABD: no distention EXTREM: no edema SKIN: warm, dry NEURO: lethargic/ depressed mental status. LAB/DI: [] Laboratory Tests 07/31/16 08/02/16 08/02/16 09:00 01:35 04:17 WBC Hgb Hct Plt Count Sodium Potassium Chloride Carbon Dioxide BUN Creatinine Troponin I 0.48 H* 1.30 H* D TSH 0.66 08/02/16 08/03/16 08/03/16 11:10 03:20 03:20 WBC 10.0 Hgb 9.4 L Hct 28.1 L Plt Count 168 Sodium 148 H Potassium 3.9 Chloride 115 H Carbon Dioxide 24 BUN 28 H Creatinine 0.90 Troponin I 4.49 H* 6.71 H* TSH EKGs: deepening symmetrical T inversions anteriorly consistent with anterior NSTEMI Echo yesterday: severe anteroapical hypokinesis/akinesis, mildly depressed LVEF IMPRESSION: acute anterior NSTEMI, ? prior anterior infarction Pt is not candidate for aggressive invasive treatment based on comorbilidities including dementia, anemia - Recommendations PLAN: recommend standard medical rx for NSTEMI, incl ASA, few days Lovenox transitioning to ASA/clopidogrel con't metoprolol; consider transition to high intensity statin ( atorvastatin) - review code status : resuscitation in event of full arrest appears medically inappropriate. No further CArdiology f/u appears warranted.
[2016-08-03] MEDS: OXYCODONE HCL 5 MG TABLET PO PRN (20:44)
[2016-08-03] MEDS: SIMVASTATIN 10 MG TAB PO SCH (20:45)
[2016-08-03] MEDS: PAROXETINE 20 MG TAB PO SCH (20:46)
[2016-08-04] MEDS: D5-1/2NS/KCL 20 mEq 1,000 ML IV SCH ×3 (03:58→19:24)
[2016-08-04 04:43] LABS: MPV 8.6 fL (7.4-10.4)
[2016-08-04 04:56] LABS: BLOOD UREA NITROGEN 19 MG/DL (9-20); CALCIUM 8.5 MG/DL (8.4-10.2); CALCULATED OSMOLALITY 277 MOs/Kg (270-290); CHLORIDE 109 mEq/L (98-107); GLUCOSE 104 MG/DL (70-99); SODIUM LEVEL 143 mEq/L (137-146)
[2016-08-04] MEDS: PANTOPRAZOLE 40 MG TAB PO SCH (05:39)
[2016-08-04] MEDS: NITROGLYCERINE 2 % OINTMENT PACK TOP SCH ×3 (05:39→17:26)
[2016-08-04] MEDS ORDERED: FLU VACCINE (Afluria) 0.5 ML DOSE IM ONE (08:00)
--- NOTE | 2016-08-04 09:38 | GENMEDPROG ---
Chief Complaint: Non ST elevation GA, hip fracture and clavicle fracture Subjective Note: Doing well, resting comfortably. Says he has some slight hip pain, as well as left shoulder pain. Notes Reviewed: Yes Events from last night noted and discussed with Clinical Staff Current Medication List: Reviewed DVT Prophylaxis: Yes - Physical Examination Vital Signs and I&O: Last Vital Signs Temp 99.3 F 08/04/16 08:00 Pulse 76 08/04/16 09:21 Resp 16 08/04/16 08:00 BP 103/64 08/04/16 08:00 Pulse Ox 93 08/04/16 08:00 Oxygen Pulse Oxygen Saturation 93 O2 Device Nasal Cannula Oxygen Flow Rate 2 Fraction of Inspired Oxygen ( FIO2) Intake & Output 08/02/16 08/03/16 08/04/16 08/05/16 06:59 06:59 06:59 06:59 Intake Total 1517 3938 2212 120 Output Total 175 Balance 1517 2513 2212 120 Patient's weight 69.91 kg 70.477 kg General: Alert, Cooperative, No acute distress, Well appearing HEENT: EOMI (Sclera white) Neck: Normal Trachea alignment, Normal inspection Respiratory: Normal - CTA (Clear to auscultation blaterally,no wheezing,rales, rhonchi.No use of accessory muscles) Cardiovascular: Regular rate, No Gallops,Rubs/Murmurs GI: Normal bowel sounds, Soft, Non tender (non distended) Extremities/Musculoskeletal: Other (Normal Tone). negative: Edema, Cyanosis Lab/DI/Studies Reviewed: Laboratory Tests 08/02/16 08/02/16 08/03/16 04:17 11:10 03:20 WBC 10.0 Hgb 9.4 L Potassium BUN Creatinine Troponin I 1.30 H* D 4.49 H* 08/03/16 08/03/16 08/04/16 03:20 13:14 04:10 WBC Hgb Potassium 3.9 BUN 28 H 19 Creatinine 0.90 0.80 Troponin I 6.71 H* 3.89 H* 2.62 H* 08/04/16 04:10 WBC Hgb 8.4 L D Potassium BUN Creatinine Troponin I - Assessment (1) NSTEMI (non-ST elevated myocardial infarction) Acute I21.4 - NON-ST ELEVATION (NSTEMI) MYOCARDIAL INFARCTION Comment/Plan: Hemodynamically stable, asymptomatic. Troponins have peaked and are coming down now. Patient is on appropriate medication including beta-lawrence, aspirin , full anticoagulation with Lovenox. Patient had echocardiogram with evidence of wall motion abnormality and prior infarction. Cardiology has seen, but he is not a candidate for any invasive therapy due to his advanced dementia. EKG also shows evidence of anterior ischemia. (2) Closed left hip fracture Acute S72.002A - FRACTURE OF UNSP PART OF NECK OF LEFT FEMUR, INIT Qualifiers: Encounter type: initial encounter Qualified Code(s): S72.002A - Fracture of unspecified part of neck of left femur, initial encounter for closed fracture Comment/Plan: Status post surgical repair. Continue postop ortho care. Continue PTOT (3) History of fracture of clavicle Acute Z87.81 - PERSONAL HISTORY OF (HEALED) TRAUMATIC FRACTURE (4) Dementia Chronic F03.90 - UNSPECIFIED DEMENTIA WITHOUT BEHAVIORAL DISTURBANCE Qualifiers: Dementia type: unspecified type Dementia behavioral disturbance: without behavioral disturbance Qualified Code(s): F03.90 - Unspecified dementia without behavioral disturbance Comment/Plan: Continue supportive care and medications. No significant behavior problems (5) Dyslipidemia Chronic E78.5 - HYPERLIPIDEMIA, UNSPECIFIED Comment/Plan: Continue statin (6) GERD (gastroesophageal reflux disease) Chronic K21.9 - GASTRO-ESOPHAGEAL REFLUX DISEASE WITHOUT ESOPHAGITIS Qualifiers: Esophagitis presence: without esophagitis Qualified Code(s): K21.9 - Gastro -esophageal reflux disease without esophagitis Comment/Plan: Continue PPI (7) HTN (hypertension) Chronic I10 - ESSENTIAL (PRIMARY) HYPERTENSION Qualifiers: Hypertension type: essential hypertension Qualified Code(s): I10 - Essential (primary) hypertension Comment/Plan: Continue meds keep SBP around 140 - Plan Continue present medical therapy for his non ST elevation myocardial infarction. Once his troponins are improved, he can be transitioned to aspirin and Plavix, and resume physical therapy with discharge planning.
[2016-08-04] MEDS: ACETAMINOPHEN 325 MG/TAB TABLET PO PRN (09:39)
[2016-08-04] MEDS: OXYCODONE HCL 5 MG TABLET PO PRN ×2 (09:39→22:53)
[2016-08-04] MEDS: ASPIRIN (CHEWABLE) 81 MG TAB PO SCH (09:40)
[2016-08-04] MEDS: DONEPEZIL HCL 10 MG TAB PO SCH (09:41)
[2016-08-04] MEDS: AMLODIPINE 5 MG TAB PO SCH (09:41)
[2016-08-04] MEDS: METOPROLOL TARTRATE 25 MG TAB PO SCH ×2 (09:41→22:53)
[2016-08-04] MEDS: MEMANTINE 5 MG TAB PO SCH ×2 (09:41→22:54)
[2016-08-04] MEDS: PEG-ELECTROLYTE 17 GM PACK PO SCH (09:41)
[2016-08-04] MEDS: RANOLAZINE 500 MG EXT RELEASE TAB PO SCH ×2 (09:42→22:53)
[2016-08-04] MEDS: PERPHENAZINE 2 MG TAB PO SCH ×2 (09:42→22:53)
[2016-08-04] MEDS: ENOXAPARIN 60 MG/0.6 ML PFS SQ SCH ×2 (09:43→22:54)
--- NOTE | 2016-08-04 11:30 | PCM.ORTHBL ---
- Subjective Post Op Day: 4 Daily Assessment - Patient: Reports: No new complaints, Pain is less, Afebrile, Other (history limited but denies any current SOB, N/V, or chest pain). Denies : Ambulating with Physical Therapist, Shortness of breath, Nausea, Vomiting - Objective / Physical Exam Vital Signs: Temperature: 99.3 F (08/04/16 08:00) HR: 76 (08/04/16 09:21)RR: 16 (08/04/16 08: 00) BP: 103/64 (08/04/16 08:00)Pulse Ox: 93 (08/04/16 08:00) General: Alert (awoken upon entering room, although he is not fully alert), Cooperative, No acute distress, Well appearing Musculoskeletal / Extremities: 2 plus Radial Pulse, 2 plus Dorsalis Pedis Pulse , Dressing Clean/Dry/Intact, Other (Able to move all fingers freely). negative : Tenderness (no calf tenderness) Neurological: Positive Sensation First Dorsal Web Space, Sensation to light touch intact, Extensor Hallicus Longus Intact, Flexor Hallicus Longus Intact, Dorsiflexion Intact, Plantarflexion Intact Laboratory/Diagnostics Reviewed: 08/04/16 04:10 08/04/16 04:10 - Assessment and Plan (1) Hip fracture Acute S72.009A - FRACTURE OF UNSP PART OF NECK OF UNSP FEMUR, INIT initial encounter closed left S72.002A - Fracture of unspecified part of neck of left femur, initial encounter for closed fracture (2) Fracture of clavicle, left, closed Acute S42.002A - FRACTURE OF UNSP PART OF LEFT CLAVICLE, INIT FOR CLOS FX initial encounter lateral end displaced S42.032A - Displaced fracture of lateral end of left clavicle, initial encounter for closed fracture Plan: s/p IM nail PT/OT/WBAT once stable; Can continue sling to LUE for comfort, but can weightbear with walker for assistance TEDS/SCDS/Anticoagulation per cardiology Continue pain management D/C planning
[2016-08-04] MEDS: FERROUS SULFATE 324 MG TAB PO SCH (11:52)
[2016-08-04] MEDS: PROBIOTIC BLEND TAB PO SCH (11:52)
[2016-08-04] MEDS: VITAMINS,PRENATAL TABLET PO SCH (11:53)
[2016-08-04] MEDS: ASCORBIC ACID 500 MG TAB PO SCH (11:54)
[2016-08-04] MEDS: PAROXETINE 20 MG TAB PO SCH (22:53)
[2016-08-04] MEDS: SIMVASTATIN 10 MG TAB PO SCH (22:54)
[2016-08-05] MEDS: D5-1/2NS/KCL 20 mEq 1,000 ML IV SCH ×4 (00:05→20:41)
[2016-08-05] MEDS: NITROGLYCERINE 2 % OINTMENT PACK TOP SCH ×4 (00:05→17:44)
[2016-08-05 04:15] LABS: MPV 8.4 fL (7.4-10.4)
[2016-08-05 04:31] LABS: BLOOD UREA NITROGEN 16 MG/DL (9-20); CALCIUM 8.6 MG/DL (8.4-10.2); CALCULATED OSMOLALITY 269 MOs/Kg (270-290); CHLORIDE 106 mEq/L (98-107); GLUCOSE 98 MG/DL (70-99); SODIUM LEVEL 139 mEq/L (137-146)
[2016-08-05] MEDS: PANTOPRAZOLE 40 MG TAB PO SCH (06:11)
[2016-08-05] MEDS: ASPIRIN (CHEWABLE) 81 MG TAB PO SCH (07:36)
[2016-08-05] MEDS: DONEPEZIL HCL 10 MG TAB PO SCH (07:36)
[2016-08-05] MEDS: PEG-ELECTROLYTE 17 GM PACK PO SCH (07:36)
[2016-08-05] MEDS: MEMANTINE 5 MG TAB PO SCH ×2 (07:37→20:50)
[2016-08-05] MEDS: OXYCODONE HCL 5 MG TABLET PO PRN ×2 (07:44→15:59)
[2016-08-05] MEDS: RANOLAZINE 500 MG EXT RELEASE TAB PO SCH ×2 (08:04→20:51)
[2016-08-05] MEDS: METOPROLOL TARTRATE 25 MG TAB PO SCH ×2 (08:04→20:50)
[2016-08-05] MEDS: AMLODIPINE 5 MG TAB PO SCH (08:05)
[2016-08-05] MEDS: PERPHENAZINE 2 MG TAB PO SCH ×2 (08:05→20:51)
--- NOTE | 2016-08-05 08:51 | GENMEDPROG ---
Chief Complaint: Left hip fracture status post repair, non ST elevation [place] Subjective Note: Doing well this morning, confused. Has no acute complaints, denies any pain or nausea. Notes Reviewed: Yes Events from last night noted and discussed with Clinical Staff Current Medication List: Reviewed Currently: Reports: Cough, SCHMITT DVT Prophylaxis: Yes - Physical Examination Vital Signs and I&O: Last Vital Signs Temp 98.2 F 08/05/16 07:57 Pulse 83 08/05/16 07:57 Resp 18 08/05/16 07:57 BP 118/61 08/05/16 07:57 Pulse Ox 98 08/05/16 07:57 Oxygen Pulse Oxygen Saturation 98 O2 Device Nasal Cannula Oxygen Flow Rate 2 Fraction of Inspired Oxygen ( FIO2) Intake & Output 08/03/16 08/04/16 08/05/16 08/06/16 06:59 06:59 06:59 06:59 Intake Total 2688 2212 3869 320 Output Total 175 Balance 2513 2212 3869 320 Patient's weight 69.91 kg 70.477 kg 70.959 kg General: Alert (awoken upon entering room, although he is not fully alert), Cooperative, No acute distress, Well appearing HEENT: EOMI (Sclera white) Neck: Normal Trachea alignment, Normal inspection Respiratory: Normal - CTA (Clear to auscultation blaterally,no wheezing,rales, rhonchi.No use of accessory muscles) Cardiovascular: Regular rate, No Gallops,Rubs/Murmurs GI: Normal bowel sounds, Soft, Non tender (non distended) Extremities/Musculoskeletal: Other (Left hip status post repair, surgical site is clean dry and intact.) Lab/DI/Studies Reviewed: Laboratory Tests 08/05/16 08/05/16 03:55 03:55 Hgb 8.5 L Potassium 4.6 BUN 16 Creatinine 0.80 - Assessment (1) NSTEMI (non-ST elevated myocardial infarction) Acute I21.4 - NON-ST ELEVATION (NSTEMI) MYOCARDIAL INFARCTION Comment/Plan: Hemodynamically stable, asymptomatic. Troponins have peaked and are coming down now. Patient is on appropriate medication including beta-lawrence, aspirin , full anticoagulation with Lovenox. Patient had echocardiogram with evidence of wall motion abnormality and prior infarction. Cardiology has seen, but he is not a candidate for any invasive therapy due to his advanced dementia. EKG also shows evidence of anterior ischemia. Continue Lovenox anticoagulation for now, recheck troponin in the morning. Hopefully once his troponin is back to normal, we can discontinue Lovenox and he can start to work with physical therapy for discharge planning. (2) Closed left hip fracture Acute S72.002A - FRACTURE OF UNSP PART OF NECK OF LEFT FEMUR, INIT Qualifiers: Encounter type: initial encounter Qualified Code(s): S72.002A - Fracture of unspecified part of neck of left femur, initial encounter for closed fracture Comment/Plan: Status post surgical repair. Continue postop ortho care. Continue PTOT (3) History of fracture of clavicle Acute Z87.81 - PERSONAL HISTORY OF (HEALED) TRAUMATIC FRACTURE (4) Dementia Chronic F03.90 - UNSPECIFIED DEMENTIA WITHOUT BEHAVIORAL DISTURBANCE Qualifiers: Dementia type: unspecified type Dementia behavioral disturbance: without behavioral disturbance Qualified Code(s): F03.90 - Unspecified dementia without behavioral disturbance Comment/Plan: Continue supportive care and medications. No significant behavior problems (5) Dyslipidemia Chronic E78.5 - HYPERLIPIDEMIA, UNSPECIFIED Comment/Plan: Continue statin (6) GERD (gastroesophageal reflux disease) Chronic K21.9 - GASTRO-ESOPHAGEAL REFLUX DISEASE WITHOUT ESOPHAGITIS Qualifiers: Esophagitis presence: without esophagitis Qualified Code(s): K21.9 - Gastro -esophageal reflux disease without esophagitis Comment/Plan: Continue PPI (7) HTN (hypertension) Chronic I10 - ESSENTIAL (PRIMARY) HYPERTENSION Qualifiers: Hypertension type: essential hypertension Qualified Code(s): I10 - Essential (primary) hypertension Comment/Plan: Continue meds keep SBP around 140 Case Care Discussed with: Patient, Nursing Staff Total Time: 41
--- NOTE | 2016-08-05 09:27 | PCM.ORTHBL ---
- Subjective Post Op Day: 5 Daily Assessment - Patient: Reports: No new complaints, Feels better, Afebrile, Other (History is limited, but offers no complaints today. Denies chest pain. Cooperative). Denies: Ambulating with Physical Therapist, Shortness of breath, Nausea, Vomiting - Objective / Physical Exam Vital Signs: Temperature: 98.2 F (08/05/16 07:57) HR: 83 (08/05/16 07:57)RR: 18 (08/05/16 07: 57) BP: 118/61 (08/05/16 07:57)Pulse Ox: 98 (08/05/16 07:57) General: Alert, Oriented x3, Cooperative, No acute distress, Well appearing Musculoskeletal / Extremities: 2 plus Radial Pulse, 2 plus Dorsalis Pedis Pulse , Dressing Clean/Dry/Intact, Other (No skin tenting along clavicle fracture site. Able to move all fingers freely.). negative: Tenderness (no calf tenderness. No significant tenderness about the hip or clavicle.) Neurological: Positive Sensation First Dorsal Web Space, Sensation to light touch intact (UE and LE), Extensor Hallicus Longus Intact, Flexor Hallicus Longus Intact, Dorsiflexion Intact, Plantarflexion Intact Laboratory/Diagnostics Reviewed: 08/05/16 03:55 08/05/16 03:55 - Assessment and Plan (1) Hip fracture Acute S72.009A - FRACTURE OF UNSP PART OF NECK OF UNSP FEMUR, INIT initial encounter closed left S72.002A - Fracture of unspecified part of neck of left femur, initial encounter for closed fracture (2) Fracture of clavicle, left, closed Acute S42.002A - FRACTURE OF UNSP PART OF LEFT CLAVICLE, INIT FOR CLOS FX initial encounter lateral end displaced S42.032A - Displaced fracture of lateral end of left clavicle, initial encounter for closed fracture Plan: POD#5 s/p IM nail PT/OT/WBAT once medically stable; Sling for comfort for LUE, however OK to weightbear while ambulating with walker once stable. Should also be working on ROM at the wrist and elbow to avoid stiffness. Continue pain management Continue anticoagulation per medicine D/C planning once stable
[2016-08-05] MEDS: ENOXAPARIN 60 MG/0.6 ML PFS SQ SCH ×2 (09:49→20:51)
[2016-08-05] MEDS: PROBIOTIC BLEND TAB PO SCH (13:10)
[2016-08-05] MEDS: FERROUS SULFATE 324 MG TAB PO SCH (13:10)
[2016-08-05] MEDS: VITAMINS,PRENATAL TABLET PO SCH (13:11)
[2016-08-05] MEDS: ASCORBIC ACID 500 MG TAB PO SCH (13:16)
[2016-08-05] MEDS: ACETAMINOPHEN 325 MG/TAB TABLET PO PRN (15:59)
[2016-08-05] MEDS: SIMVASTATIN 10 MG TAB PO SCH (20:51)
[2016-08-05] MEDS: PAROXETINE 20 MG TAB PO SCH (20:51)
[2016-08-06] MEDS: NITROGLYCERINE 2 % OINTMENT PACK TOP SCH ×5 (00:03→23:41)
[2016-08-06 04:10] LABS: MPV 8.3 fL (7.4-10.4)
[2016-08-06 04:20] LABS: BLOOD UREA NITROGEN 14 MG/DL (9-20); CALCIUM 8.7 MG/DL (8.4-10.2); CALCULATED OSMOLALITY 270 MOs/Kg (270-290); GLUCOSE 121 MG/DL (70-99); SODIUM LEVEL 139 mEq/L (137-146)
[2016-08-06 04:25] LABS: CHLORIDE 105 mEq/L (98-107)
[2016-08-06] MEDS: D5-1/2NS/KCL 20 mEq 1,000 ML IV SCH ×3 (05:05→19:10)
[2016-08-06] MEDS: ACETAMINOPHEN 325 MG/TAB TABLET PO PRN (05:06)
[2016-08-06] MEDS: OXYCODONE HCL 5 MG TABLET PO PRN ×2 (05:06→16:29)
[2016-08-06] MEDS: PANTOPRAZOLE 40 MG TAB PO SCH (05:11)
--- NOTE | 2016-08-06 07:03 | PCM.ORTHBL ---
- Subjective Post Op Day: 6 Daily Assessment - Patient: Reports: No new complaints, Still having pain, Pain is less. Denies: Ambulating with Physical Therapist, Shortness of breath, Nausea, Vomiting - Objective / Physical Exam Vital Signs: Temperature: 99.7 F (08/06/16 04:26) HR: 84 (08/06/16 06:00)RR: 18 (08/06/16 03: 37) BP: 127/91 (08/06/16 03:37)Pulse Ox: 97 (08/06/16 03:37) General: Alert (awoken upon entering room), Cooperative, No acute distress, Well appearing Musculoskeletal / Extremities: 2 plus Radial Pulse, 2 plus Dorsalis Pedis Pulse , Dressing Clean/Dry/Intact, Other (No skin tenting noted along left clavicle fracture site). negative: Tenderness (no significant calf tenderness. Hip is nontender to palpation. No tenderness along calvicular fracture site.) Neurological: Positive Sensation First Dorsal Web Space, Sensation to light touch intact (UE and LE), Extensor Hallicus Longus Intact, Flexor Hallicus Longus Intact, Dorsiflexion Intact, Plantarflexion Intact Laboratory/Diagnostics Reviewed: 08/06/16 04:05 08/06/16 04:05 - Assessment and Plan (1) Hip fracture Acute S72.009A - FRACTURE OF UNSP PART OF NECK OF UNSP FEMUR, INIT initial encounter closed left S72.002A - Fracture of unspecified part of neck of left femur, initial encounter for closed fracture (2) Fracture of clavicle, left, closed Acute S42.002A - FRACTURE OF UNSP PART OF LEFT CLAVICLE, INIT FOR CLOS FX initial encounter lateral end displaced S42.032A - Displaced fracture of lateral end of left clavicle, initial encounter for closed fracture Plan: s/p IM nail left hip, POD#6 PT/OT/WBAT with LLE; sling for comfort for LUE, otherwise ok to WB for assistance with ambulation. Elbow and wrist ROM. PT once medically stable TEDS/SCDS/Anticoagulation per medicine Continue pain management D/c planning once stable
[2016-08-06] MEDS: RANOLAZINE 500 MG EXT RELEASE TAB PO SCH ×2 (08:59→21:04)
[2016-08-06] MEDS: PEG-ELECTROLYTE 17 GM PACK PO SCH (08:59)
[2016-08-06] MEDS: DONEPEZIL HCL 10 MG TAB PO SCH (08:59)
[2016-08-06] MEDS: AMLODIPINE 5 MG TAB PO SCH (08:59)
[2016-08-06] MEDS: METOPROLOL TARTRATE 25 MG TAB PO SCH ×2 (08:59→21:03)
[2016-08-06] MEDS: MEMANTINE 5 MG TAB PO SCH ×2 (08:59→21:03)
[2016-08-06] MEDS: PERPHENAZINE 2 MG TAB PO SCH ×2 (08:59→21:03)
[2016-08-06] MEDS: ENOXAPARIN 60 MG/0.6 ML PFS SQ SCH (09:00)
[2016-08-06] MEDS: ASPIRIN (CHEWABLE) 81 MG TAB PO SCH (09:00)
--- NOTE | 2016-08-06 09:12 | GENMEDPROG ---
Chief Complaint: Non ST elevation GA, status post hip surgery Subjective Note: Doing well, has no acute complaints. Apparently overnight, his some sort of event where he became diaphoretic, but his vital signs were stable Notes Reviewed: Yes Events from last night noted and discussed with Clinical Staff Current Medication List: Reviewed Currently: Reports: Cough, SCHMITT DVT Prophylaxis: Yes - Physical Examination Vital Signs and I&O: Last Vital Signs Temp 98.2 F 08/06/16 07:39 Pulse 78 08/06/16 07:39 Resp 20 08/06/16 07:39 BP 108/55 L 08/06/16 07:39 Pulse Ox 97 08/06/16 07:39 Oxygen Pulse Oxygen Saturation 97 O2 Device Nasal Cannula Oxygen Flow Rate 1 Fraction of Inspired Oxygen ( FIO2) Intake & Output 08/04/16 08/05/16 08/06/16 08/07/16 06:59 06:59 06:59 06:59 Intake Total 2212 3867 4360 Balance 2212 3868 4360 Patient's weight 70.477 kg 70.959 kg General: Alert (awoken upon entering room), Cooperative, No acute distress, Well appearing Neck: Normal Trachea alignment, Normal inspection Respiratory: Normal - CTA (Clear to auscultation blaterally,no wheezing,rales, rhonchi.No use of accessory muscles) Cardiovascular: Regular rate, No Gallops,Rubs/Murmurs GI: Normal bowel sounds, Soft, Non tender (non distended) Lab/DI/Studies Reviewed: Laboratory Tests 08/04/16 08/05/16 08/06/16 04:10 03:55 04:05 WBC 8.9 Hgb BUN 14 Creatinine 0.80 Troponin I 2.62 H* 1.46 H* 08/06/16 04:05 WBC 14.2 H Hgb 8.8 L BUN Creatinine Troponin I - Assessment (1) NSTEMI (non-ST elevated myocardial infarction) Acute I21.4 - NON-ST ELEVATION (NSTEMI) MYOCARDIAL INFARCTION Comment/Plan: Hemodynamically stable, asymptomatic. Troponins have peaked and are coming down now. Patient is on appropriate medication including beta-lawrence, aspirin , full anticoagulation with Lovenox. Patient had echocardiogram with evidence of wall motion abnormality and prior infarction. Cardiology has seen, but he is not a candidate for any invasive therapy due to his advanced dementia. EKG also shows evidence of anterior ischemia. Continue Lovenox anticoagulation for now, recheck troponin in the morning. Hopefully once his troponin is back to normal, we can discontinue Lovenox and he can start to work with physical therapy for discharge planning. (2) Closed left hip fracture Acute S72.002A - FRACTURE OF UNSP PART OF NECK OF LEFT FEMUR, INIT Qualifiers: Encounter type: initial encounter Qualified Code(s): S72.002A - Fracture of unspecified part of neck of left femur, initial encounter for closed fracture Comment/Plan: Status post surgical repair. Continue postop ortho care. Continue PTOT (3) History of fracture of clavicle Acute Z87.81 - PERSONAL HISTORY OF (HEALED) TRAUMATIC FRACTURE (4) Dementia Chronic F03.90 - UNSPECIFIED DEMENTIA WITHOUT BEHAVIORAL DISTURBANCE Qualifiers: Dementia type: unspecified type Dementia behavioral disturbance: without behavioral disturbance Qualified Code(s): F03.90 - Unspecified dementia without behavioral disturbance Comment/Plan: Continue supportive care and medications. No significant behavior problems (5) Dyslipidemia Chronic E78.5 - HYPERLIPIDEMIA, UNSPECIFIED Comment/Plan: Continue statin (6) GERD (gastroesophageal reflux disease) Chronic K21.9 - GASTRO-ESOPHAGEAL REFLUX DISEASE WITHOUT ESOPHAGITIS Qualifiers: Esophagitis presence: without esophagitis Qualified Code(s): K21.9 - Gastro -esophageal reflux disease without esophagitis Comment/Plan: Continue PPI (7) HTN (hypertension) Chronic I10 - ESSENTIAL (PRIMARY) HYPERTENSION Qualifiers: Hypertension type: essential hypertension Qualified Code(s): I10 - Essential (primary) hypertension Comment/Plan: Continue meds keep SBP around 140 - Plan Patient has also developed leukocytosis today, but no other evidence of infection. Will keep a close eye on his vital signs. Case Care Discussed with: Patient, Nursing Staff Total Time: 38
--- NOTE | 2016-08-06 09:42 | CAPUEKG ---
[place], [place] Test Date: 2016-08-06 Pat Name: KATTY LICEA Department: Room: 439 Gender: Male Resident Care Coordinator: AGUSTÍN : Requested By: Order Number: Reading MD: Eleazar Pimentel MD Measurements Intervals [place] Rate: 88 P: 26 DE: 166 QRS: 7 QRSD: 98 T: 150 QT: 430 QTc: 520 Interpretive Statements Normal sinus rhythm Inferior infarct, age undetermined Anterior infarct, age undetermined T wave abnormality, consider lateral ischemia Prolonged QT Abnormal ECG Electronically Signed On 08-06-16 09:42:17 EST by Eleazar Pimentel MD [id number]> [id number]
[2016-08-06] MEDS: VITAMINS,PRENATAL TABLET PO SCH (12:14)
[2016-08-06] MEDS: FERROUS SULFATE 324 MG TAB PO SCH (12:14)
[2016-08-06] MEDS: ASCORBIC ACID 500 MG TAB PO SCH (12:14)
[2016-08-06] MEDS: PROBIOTIC BLEND TAB PO SCH (12:14)
[2016-08-06] MEDS: MORPHINE 2 MG/ML INJECTION IV PRN ×2 (12:35→21:10)
[2016-08-06] MEDS: PAROXETINE 20 MG TAB PO SCH (21:03)
[2016-08-06] MEDS: SIMVASTATIN 10 MG TAB PO SCH (21:03)
[2016-08-06] MEDS: ENOXAPARIN 80 MG/0.8 ML PFS SQ SCH (21:03)
[2016-08-07] MEDS: D5-1/2NS/KCL 20 mEq 1,000 ML IV SCH ×4 (03:46→22:05)
[2016-08-07] MEDS: MORPHINE 2 MG/ML INJECTION IV PRN ×4 (04:20→21:53)
[2016-08-07] MEDS: PANTOPRAZOLE 40 MG TAB PO SCH (05:09)
[2016-08-07] MEDS: NITROGLYCERINE 2 % OINTMENT PACK TOP SCH ×3 (05:09→17:35)
[2016-08-07 05:29] LABS: MPV 8.7 fL (7.4-10.4)
[2016-08-07 05:36] LABS: BLOOD UREA NITROGEN 10 MG/DL (9-20); CALCIUM 8.4 MG/DL (8.4-10.2); CALCULATED OSMOLALITY 259 MOs/Kg (270-290); CHLORIDE 102 mEq/L (98-107); GLUCOSE 99 MG/DL (70-99); SODIUM LEVEL 135 mEq/L (137-146)
--- NOTE | 2016-08-07 07:03 | PCM.ORTHBL ---
- Subjective Post Op Day: 7 Daily Assessment - Patient: Reports: No new complaints, Other (Patient is confused, limited history). Denies: Ambulating with Physical Therapist, Shortness of breath, Nausea, Vomiting - Objective / Physical Exam Vital Signs: Temperature: 98.0 F (08/07/16 05:20) HR: 99 (08/07/16 05:48)RR: 18 (08/07/16 05: 20) BP: 110/69 (08/07/16 05:20)Pulse Ox: 98 (08/07/16 05:20) General: Alert, Cooperative, No acute distress, Well appearing, Other (confused) Musculoskeletal / Extremities: 2 plus Radial Pulse, 2 plus Dorsalis Pedis Pulse , Dressing Clean/Dry/Intact, Other (No skin tenting along clavicle fracture site ). negative: Tenderness (no calf tenderness) Neurological: Positive Sensation First Dorsal Web Space, Sensation to light touch intact (UE and LE), Extensor Hallicus Longus Intact, Flexor Hallicus Longus Intact, Dorsiflexion Intact, Plantarflexion Intact Laboratory/Diagnostics Reviewed: 08/07/16 04:25 08/07/16 04:25 - Assessment and Plan (1) Hip fracture Acute S72.009A - FRACTURE OF UNSP PART OF NECK OF UNSP FEMUR, INIT initial encounter closed left S72.002A - Fracture of unspecified part of neck of left femur, initial encounter for closed fracture (2) Fracture of clavicle, left, closed Acute S42.002A - FRACTURE OF UNSP PART OF LEFT CLAVICLE, INIT FOR CLOS FX initial encounter lateral end displaced S42.032A - Displaced fracture of lateral end of left clavicle, initial encounter for closed fracture Plan: s/p IM nail left hip PT/OT/WBAT; Sling to LUE for comfort, however ok for WBAT to assist with ambulation and walker. Elbow and wrist ROM. PT once medically stable. TEDS/SCDS/Anticoagulation per medicine/cardiology Continue pain management D/c planning, plan for SNF once medically stable.
--- NOTE | 2016-08-07 08:45 | GENMEDPROG ---
Chief Complaint: s/p ORIF for hip Fx, now S/P NSTEMI, Currently: Reports: Cough, SCHMITT DVT Prophylaxis: Yes - Physical Examination Vital Signs and I&O: Last Vital Signs Temp 98.2 F 08/07/16 07:34 Pulse 103 08/07/16 07:34 Resp 18 08/07/16 07:34 BP 143/89 08/07/16 07:34 Pulse Ox 100 08/07/16 07:34 Oxygen Pulse Oxygen Saturation 100 O2 Device Nasal Cannula Oxygen Flow Rate 1 Fraction of Inspired Oxygen ( FIO2) Intake & Output 08/04/16 08/05/16 08/06/16 08/07/16 23:59 23:59 23:59 23:59 Intake Total 3094 3499 3116 1040 Balance 3094 3499 3116 1040 Patient's weight 70.477 kg 70.959 kg 71.724 kg General: Alert, Cooperative, No acute distress, Well appearing, Other (confused) HEENT: PERRLA, EOMI, Anicteric Sclera, Mucous membr. moist/pink Neck: Full range of motion, Normal Trachea alignment, Normal inspection, No Masses palpable Lymphatics: Normal Respiratory: Accessory Muscle Use, Diminished, Rales, Tachypnea Cardiovascular: Regular rate and rhythm, Normal S1, Normal S2 GI: Normal bowel sounds, Soft, Non tender, No masses Extremities/Musculoskeletal: Normal pulses, DJD Skin: Warm,Dry and Intact Neurological: Normal Steady Gait, Normal tone, Cranial nerves 3-12 NL, Gait Unsteady, Drowsy. negative: Normal speech Psych/Mental Status: Normal Affect, Cooperative, Agitated, Anxious, Confabulating, Confused, Disoriented - Assessment (1) NSTEMI (non-ST elevated myocardial infarction) Acute I21.4 - NON-ST ELEVATION (NSTEMI) MYOCARDIAL INFARCTION Comment/Plan: Hemodynamically stable, asymptomatic. Troponins have peaked and are coming down now. Patient has been on appropriate medication including beta-lawrence, aspirin, full anticoagulation with Lovenox. Unfortunately now has developed falling H/H and GI bleed. Patient had echocardiogram with evidence of wall motion abnormality and prior infarction. Cardiology has seen, but he is not a candidate for any invasive therapy due to his advanced dementia. EKG also shows evidence of anterior ischemia. He is now 1 week s/p his acute SC. Lovenox had already been decreased to prophylactic dose. Will stop anticoagulant & ASA for now. (2) Anemia Acute D64.9 - ANEMIA, UNSPECIFIED Qualifiers: Anemia type: iron deficiency Iron deficiency anemia type: chronic blood loss Qualified Code(s): D50.0 - Iron deficiency anemia secondary to blood loss (chronic) Comment/Plan: Monitor counts (3) GI bleeding Acute K92.2 - GASTROINTESTINAL HEMORRHAGE, UNSPECIFIED Qualifiers: GI bleed type/associated pathology: unspecified gastrointestinal hemorrhage type Qualified Code(s): K92.2 - Gastrointestinal hemorrhage, unspecified Comment/Plan: Patient with recent SC, now heme + stools, and falling H/H. has been transfused 2 units PRBCs, continue to monitor. Was 12.9 on admission. Patient is poor communicator, due to prior stroke and expressive aphasia. Not a good candidate for anticoagulation. Will transfuse as needed, continue aspirin and Lovenox. (4) Acute kidney injury Acute N17.9 - ACUTE KIDNEY FAILURE, UNSPECIFIED Comment/Plan: Creatinine up to 1.9 today. Maintain hydration avoid any nephrotoxins monitor BMP (5) Hip fracture Acute S72.009A - FRACTURE OF UNSP PART OF NECK OF UNSP FEMUR, INIT Qualifiers: Encounter type: initial encounter Fracture type: closed Laterality: left Qualified Code(s): S72.002A - Fracture of unspecified part of neck of left femur, initial encounter for closed fracture (6) Fracture of clavicle, left, closed Acute S42.002A - FRACTURE OF UNSP PART OF LEFT CLAVICLE, INIT FOR CLOS FX Qualifiers: Encounter type: initial encounter Clavicle location: lateral end Fracture alignment: displaced Qualified Code(s): S42.032A - Displaced fracture of lateral end of left clavicle, initial encounter for closed fracture Comment/Plan: Continue splint (7) Left hip pain Acute M25.552 - PAIN IN LEFT HIP Comment/Plan: Will scheduled Tylenol around the clock and p.r.n. morphine and oxycodone. (8) Adult failure to thrive Chronic R62.7 - ADULT FAILURE TO THRIVE Comment/Plan: Continue nutritional support (9) CAD (coronary artery disease) Chronic I25.10 - ATHSCL HEART DISEASE OF [place] CORONARY ARTERY W/O ANG PCTRS Qualifiers: Coronary Disease-Associated Artery/Lesion type: [place] artery [place] vs. transplanted heart: [place] heart Associated angina: without angina Qualified Code(s): I25.10 - Atherosclerotic heart disease of [place] coronary artery without angina pectoris Comment/Plan: Now with abnormal troponins. Continue aspirin beta-lawrence Ranexa and topical nitrates. 2D echo pending. Add full-dose Lovenox. Monitor serial troponins. Case Care Discussed with: Patient, Nursing Staff Education/Counseling Given To: Patient Education/Counseling Given Regarding: Diagnosis, Treatment, Prognosis Critical Care: No Couseling Time (>50% in counseling/coordination): Yes Code: 69150 (12+)
[2016-08-07] MEDS: ASPIRIN (CHEWABLE) 81 MG TAB PO SCH (09:53)
[2016-08-07] MEDS: RANOLAZINE 500 MG EXT RELEASE TAB PO SCH ×2 (09:53→21:53)
[2016-08-07] MEDS: PEG-ELECTROLYTE 17 GM PACK PO SCH (09:53)
[2016-08-07] MEDS: PERPHENAZINE 2 MG TAB PO SCH ×2 (09:54→21:53)
[2016-08-07] MEDS: AMLODIPINE 5 MG TAB PO SCH (09:54)
[2016-08-07] MEDS: ENOXAPARIN 80 MG/0.8 ML PFS SQ SCH (09:54)
[2016-08-07] MEDS: MEMANTINE 5 MG TAB PO SCH ×2 (09:54→21:53)
[2016-08-07] MEDS: DONEPEZIL HCL 10 MG TAB PO SCH (09:54)
[2016-08-07] MEDS: METOPROLOL TARTRATE 25 MG TAB PO SCH ×2 (09:54→21:53)
[2016-08-07] MEDS: FERROUS SULFATE 324 MG TAB PO SCH (11:16)
[2016-08-07] MEDS: VITAMINS,PRENATAL TABLET PO SCH (11:16)
[2016-08-07] MEDS: PROBIOTIC BLEND TAB PO SCH (11:17)
[2016-08-07] MEDS: ASCORBIC ACID 500 MG TAB PO SCH (11:18)
[2016-08-07] MEDS: OXYCODONE HCL 5 MG TABLET PO PRN (14:29)
[2016-08-07] MEDS: ENOXAPARIN 40 MG/0.4 ML PFS SQ SCH (17:35)
[2016-08-07] MEDS: SIMVASTATIN 10 MG TAB PO SCH (21:52)
[2016-08-07] MEDS: PAROXETINE 20 MG TAB PO SCH (21:53)
[2016-08-08] MEDS: NITROGLYCERINE 2 % OINTMENT PACK TOP SCH ×4 (00:48→17:33)
[2016-08-08] MEDS: D5-1/2NS/KCL 20 mEq 1,000 ML IV SCH ×4 (00:51→22:22)
[2016-08-08] MEDS: MORPHINE 2 MG/ML INJECTION IV PRN ×2 (02:16→09:12)
[2016-08-08 05:01] LABS: MPV 8.7 fL (7.4-10.4)
[2016-08-08] MEDS: PANTOPRAZOLE 40 MG TAB PO SCH (05:08)
[2016-08-08 05:12] LABS: BLOOD UREA NITROGEN 12 MG/DL (9-20); CALCIUM 8.3 MG/DL (8.4-10.2); CALCULATED OSMOLALITY 266 MOs/Kg (270-290); CHLORIDE 105 mEq/L (98-107); GLUCOSE 92 MG/DL (70-99); SODIUM LEVEL 138 mEq/L (137-146)
--- NOTE | 2016-08-08 07:29 | PCM.ORTHBL ---
- Subjective Post Op Day: 8 Daily Assessment - Patient: Reports: No new complaints, Afebrile. Denies: Ambulating with Physical Therapist, Shortness of breath, Nausea, Vomiting - Objective / Physical Exam Vital Signs: Temperature: 97.9 F (08/08/16 05:04) HR: 89 (08/08/16 05:54)RR: 18 (08/08/16 05: 04) BP: 98/66 (08/08/16 05:04)Pulse Ox: 93 (08/08/16 05:04) General: Alert, No acute distress, Well appearing, Other (confused) Musculoskeletal / Extremities: 2 plus Dorsalis Pedis Pulse, Dressing Clean/Dry/ Intact. negative: Tenderness (no calf tenderness) Neurological: Positive Sensation First Dorsal Web Space, Sensation to light touch intact, Extensor Hallicus Longus Intact, Flexor Hallicus Longus Intact, Dorsiflexion Intact, Plantarflexion Intact Laboratory/Diagnostics Reviewed: 08/08/16 04:00 08/08/16 04:00 - Assessment and Plan (1) Hip fracture Acute S72.009A - FRACTURE OF UNSP PART OF NECK OF UNSP FEMUR, INIT initial encounter closed left S72.002A - Fracture of unspecified part of neck of left femur, initial encounter for closed fracture (2) Fracture of clavicle, left, closed Acute S42.002A - FRACTURE OF UNSP PART OF LEFT CLAVICLE, INIT FOR CLOS FX initial encounter lateral end displaced S42.032A - Displaced fracture of lateral end of left clavicle, initial encounter for closed fracture Plan: s/p IM nail left hip PT/OT/WBAT once medically stable; Sling to LUE for comfort, but ok for ROM of left elbow and wrist to prevent stiffness. WBAT with LUE to aid with ambulation. Continue pain management Anticoagulation per medicine/cardiology D/C planning.
[2016-08-08] MEDS: ASPIRIN (CHEWABLE) 81 MG TAB PO SCH (09:13)
[2016-08-08] MEDS: DONEPEZIL HCL 10 MG TAB PO SCH (09:14)
[2016-08-08] MEDS: MEMANTINE 5 MG TAB PO SCH ×2 (09:14→22:32)
[2016-08-08] MEDS: PEG-ELECTROLYTE 17 GM PACK PO SCH (09:14)
[2016-08-08] MEDS: METOPROLOL TARTRATE 25 MG TAB PO SCH ×2 (09:14→22:36)
[2016-08-08] MEDS: RANOLAZINE 500 MG EXT RELEASE TAB PO SCH ×2 (09:15→22:32)
[2016-08-08] MEDS: PERPHENAZINE 2 MG TAB PO SCH ×2 (09:15→22:32)
[2016-08-08] MEDS: AMLODIPINE 5 MG TAB PO SCH ×2 (09:15→10:47)
[2016-08-08] MEDS: PROBIOTIC BLEND TAB PO SCH (09:15)
[2016-08-08] MEDS: VITAMINS,PRENATAL TABLET PO SCH (09:16)
[2016-08-08] MEDS: FERROUS SULFATE 324 MG TAB PO SCH (12:21)
[2016-08-08] MEDS: ASCORBIC ACID 500 MG TAB PO SCH (12:22)
[2016-08-08] MEDS: OXYCODONE HCL 5 MG TABLET PO PRN ×2 (14:25→22:31)
--- NOTE | 2016-08-08 16:17 | GENMEDPROG ---
Chief Complaint: NSTEMI, GI bleed, CAD, s/p repair of Hip fx, anemia, humerus fx, ambulatory dysfunction, dementia Subjective Note: stool is heme +, patient now with falling H/H Notes Reviewed: Yes Events from last night noted and discussed with Clinical Staff Current Medication List: Reviewed Currently: Reports: Cough, SCHMITT, Fredy PT/OT. Denies: Ambulating DVT Prophylaxis: Yes - Physical Examination Vital Signs and I&O: Last Vital Signs Temp 98.4 F 08/08/16 15:12 Pulse 72 08/08/16 15:43 Resp 18 08/08/16 15:12 BP 103/64 08/08/16 15:12 Pulse Ox 97 08/08/16 15:12 Oxygen Pulse Oxygen Saturation 97 O2 Device Nasal Cannula Oxygen Flow Rate 1.5 Fraction of Inspired Oxygen ( FIO2) Intake & Output 08/05/16 08/06/16 08/07/16 08/08/16 23:59 23:59 23:59 23:59 Intake Total 3499 3116 2756 1632 Balance 3499 3116 2756 1632 Patient's weight 70.959 kg 71.724 kg 72.529 kg General: Alert, No acute distress, Well appearing, Weakness, Other (confused). negative: Oriented x3 HEENT: PERRLA, EOMI, Anicteric Sclera, Mucous membr. moist/pink Neck: Normal Trachea alignment, Normal inspection, No Masses palpable, No Thyromegaly palpable Lymphatics: Normal Respiratory: Normal - CTA, Diminished Cardiovascular: Regular rate and rhythm, Normal S1, Normal S2, PMI Not Lateralized, Chest Non Tender. negative: LE Edema GI: Normal bowel sounds, Soft, Non tender, No masses Extremities/Musculoskeletal: Normal pulses, Swelling, DJD Neurological: Normal tone, Cranial nerves 3-12 NL. negative: Normal speech ( expressive dysphasia) Psych/Mental Status: Normal Affect, Cooperative, Confused Lab/DI/Studies Reviewed: Laboratory Tests 08/08/16 08/08/16 04:00 04:00 WBC 8.6 Hgb 7.6 L Hct 22.2 L Plt Count 270 Sodium 138 Potassium 4.5 Chloride 105 Carbon Dioxide 26 Anion Gap 12 Creatinine 0.80 Glucose 92 Calculated Osmolality 266 L Calcium 8.3 L - Assessment (1) Anemia Acute D64.9 - ANEMIA, UNSPECIFIED Qualifiers: Anemia type: iron deficiency Iron deficiency anemia type: chronic blood loss Qualified Code(s): D50.0 - Iron deficiency anemia secondary to blood loss (chronic) Comment/Plan: Transfuse 2 units of pooled red blood cells today. Monitor counts (2) NSTEMI (non-ST elevated myocardial infarction) Acute I21.4 - NON-ST ELEVATION (NSTEMI) MYOCARDIAL INFARCTION Comment/Plan: Hemodynamically stable, asymptomatic. Troponins have peaked and are coming down now. Patient has been on appropriate medication including beta-lawrence, aspirin, full anticoagulation with Lovenox. Unfortunately now has developed falling H/H and GI bleed. Patient had echocardiogram with evidence of wall motion abnormality and prior infarction. Cardiology has seen, but he is not a candidate for any invasive therapy due to his advanced dementia. EKG also shows evidence of anterior ischemia. He is now 1 week s/p his acute MD. Lovenox had already been decreased to prophylactic dose. Will stop anticoagulant & ASA for now. (3) GI bleeding Acute K92.2 - GASTROINTESTINAL HEMORRHAGE, UNSPECIFIED Qualifiers: GI bleed type/associated pathology: unspecified gastrointestinal hemorrhage type Qualified Code(s): K92.2 - Gastrointestinal hemorrhage, unspecified Comment/Plan: Patient with recent MD, now heme + stools, and falling H/H. has been transfused 2 units PRBCs, but Hg now 7.6 again. Was 12.9 on admission. Patient is poor communicator, due to prior stroke and expressive aphasia. Not a good candidate for anticoagulation. Will transfuse, stop aspirin and Lovenox. Consider Plavix after 2 weeks & discharge on PPI chronically. (4) Closed left hip fracture Acute S72.002A - FRACTURE OF UNSP PART OF NECK OF LEFT FEMUR, INIT Qualifiers: Encounter type: initial encounter Qualified Code(s): S72.002A - Fracture of unspecified part of neck of left femur, initial encounter for closed fracture Comment/Plan: Status post surgical repair. Continue postop ortho care. Continue PT/OT (5) Fracture of clavicle, left, closed Acute S42.002A - FRACTURE OF UNSP PART OF LEFT CLAVICLE, INIT FOR CLOS FX Qualifiers: Encounter type: initial encounter Clavicle location: lateral end Fracture alignment: displaced Qualified Code(s): S42.032A - Displaced fracture of lateral end of left clavicle, initial encounter for closed fracture Comment/Plan: Continue splint (6) Adult failure to thrive Chronic R62.7 - ADULT FAILURE TO THRIVE Comment/Plan: Continue nutritional support (7) CAD (coronary artery disease) Chronic I25.10 - ATHSCL HEART DISEASE OF [place] CORONARY ARTERY W/O ANG PCTRS Qualifiers: Coronary Disease-Associated Artery/Lesion type: [place] artery [place] vs. transplanted heart: [place] heart Associated angina: without angina Qualified Code(s): I25.10 - Atherosclerotic heart disease of [place] coronary artery without angina pectoris Comment/Plan: Now with abnormal troponins. Continue aspirin beta-lawrence Ranexa and topical nitrates. 2D echo pending. Add full-dose Lovenox. Monitor serial troponins. (8) Acute kidney injury Acute N17.9 - ACUTE KIDNEY FAILURE, UNSPECIFIED Comment/Plan: Creatinine up to 1.9 today. Maintain hydration avoid any nephrotoxins monitor BMP (9) Dementia Chronic F03.90 - UNSPECIFIED DEMENTIA WITHOUT BEHAVIORAL DISTURBANCE Qualifiers: Dementia type: unspecified type Dementia behavioral disturbance: without behavioral disturbance Qualified Code(s): F03.90 - Unspecified dementia without behavioral disturbance Comment/Plan: Continue supportive care and medications. No significant behavior problems (10) Dyslipidemia Chronic E78.5 - HYPERLIPIDEMIA, UNSPECIFIED Comment/Plan: Continue statin
[2016-08-08] MEDS: ENOXAPARIN 40 MG/0.4 ML PFS SQ SCH (17:33)
[2016-08-08] MEDS: SIMVASTATIN 10 MG TAB PO SCH (22:33)
[2016-08-08] MEDS: PAROXETINE 20 MG TAB PO SCH (22:36)
[2016-08-09] MEDS ORDERED: NS 250 ML IV ONE (00:44)
[2016-08-09] MEDS: NITROGLYCERINE 2 % OINTMENT PACK TOP SCH ×3 (01:15→10:54)
[2016-08-09] MEDS ORDERED: FUROSEMIDE 40 MG/4 ML VIAL IV ONE (04:16)
[2016-08-09] MEDS: TRAZODONE 50 MG TAB PO PRN ×2 (04:16→21:03)
[2016-08-09] MEDS: D5-1/2NS/KCL 20 mEq 1,000 ML IV SCH ×2 (06:11→12:57)
[2016-08-09] MEDS: PANTOPRAZOLE 40 MG TAB PO SCH (06:12)
[2016-08-09] MEDS: PEG-ELECTROLYTE 17 GM PACK PO SCH (08:26)
[2016-08-09] MEDS: METOPROLOL TARTRATE 25 MG TAB PO SCH ×2 (08:26→21:03)
[2016-08-09] MEDS: DONEPEZIL HCL 10 MG TAB PO SCH (08:27)
[2016-08-09] MEDS: FERROUS SULFATE 324 MG TAB PO SCH (08:27)
[2016-08-09] MEDS: AMLODIPINE 5 MG TAB PO SCH (08:27)
[2016-08-09] MEDS: RANOLAZINE 500 MG EXT RELEASE TAB PO SCH ×2 (08:27→21:02)
[2016-08-09] MEDS: ASCORBIC ACID 500 MG TAB PO SCH (08:28)
[2016-08-09] MEDS: PROBIOTIC BLEND TAB PO SCH (08:28)
[2016-08-09] MEDS: VITAMINS,PRENATAL TABLET PO SCH (08:28)
[2016-08-09] MEDS: PERPHENAZINE 2 MG TAB PO SCH ×2 (08:28→21:04)
[2016-08-09] MEDS: MEMANTINE 5 MG TAB PO SCH ×2 (08:29→21:02)
--- NOTE | 2016-08-09 08:51 | PCM.ORTHBL ---
- Subjective Post Op Day: 9 Daily Assessment - Patient: Reports: No new complaints, Feels better, Voiding without difficulty, Afebrile - Objective / Physical Exam Vital Signs: Temperature: 98.4 F (08/09/16 08:39) HR: 80 (08/09/16 08:39)RR: 18 (08/09/16 08: 39) BP: 111/70 (08/09/16 08:39)Pulse Ox: 94 (08/09/16 08:39) General: Cooperative, No acute distress Musculoskeletal / Extremities: 2 plus Dorsalis Pedis Pulse, Dressing Clean/Dry/ Intact Neurological: Positive Sensation First Dorsal Web Space, Sensation to light touch intact, Extensor Hallicus Longus Intact, Flexor Hallicus Longus Intact, Dorsiflexion Intact, Plantarflexion Intact Skin: Warm,Dry and Intact Laboratory/Diagnostics Reviewed: Laboratory Results - last 24 hr 08/08/16 23:20 Blood Type O NEGATIVE Antibody Screen Negative Crossmatch See Detail - Assessment and Plan (1) Closed left hip fracture Acute S72.002A - FRACTURE OF UNSP PART OF NECK OF LEFT FEMUR, INIT Present on Admission: Yes initial encounter S72.002A - Fracture of unspecified part of neck of left femur, initial encounter for closed fracture Comment/Plan: POD #9 s/p L hip IMN doing well. Non op left clavicle as well currently in sling for comfort. WBAT LLE with AD PT/OT. NWB LUE and sling for comfort. Ok to do ROM left elbow/wrist/hand and pendulum for shoulder. Ortho stable at this point, if patient is here POD #12-14 will consider removing mala. Will sign off at this point, call if questions or changes occur.
[2016-08-09] MEDS ORDERED: NS 500 ML IV ONE (10:13)
--- NOTE | 2016-08-09 10:15 | GENMEDPROG ---
Chief Complaint: NSTEMI, anemia, s/p hip fracture, humerus fracture, dementia, expressive aphasia , Currently: Reports: Cough, SCHMITT, Fredy PT/OT. Denies: Ambulating DVT Prophylaxis: Yes - Physical Examination Vital Signs and I&O: Last Vital Signs Temp 98.0 F 08/09/16 09:39 Pulse 74 08/09/16 09:39 Resp 18 08/09/16 09:39 BP 84/56 L 08/09/16 09:39 Pulse Ox 96 08/09/16 09:39 Oxygen Pulse Oxygen Saturation 96 O2 Device Nasal Cannula Oxygen Flow Rate 1.5 Fraction of Inspired Oxygen ( FIO2) Intake & Output 08/06/16 08/07/16 08/08/16 08/09/16 23:59 23:59 23:59 23:59 Intake Total 3110 2759 3104 2078 Balance 3110 8299 3108 2071 Patient's weight 71.724 kg 72.529 kg 72.167 kg General: Cooperative, No acute distress HEENT: PERRLA, EOMI, Anicteric Sclera, Mucous membr. moist/pink Neck: Full range of motion, Normal Trachea alignment, Normal inspection, No Masses palpable Lymphatics: Normal Respiratory: Accessory Muscle Use, Diminished Cardiovascular: Normal S1, Normal S2, Irregular GI: Normal bowel sounds, Soft, Non tender, No masses Extremities/Musculoskeletal: DJD, Other (L arm in sling,) Skin: Warm,Dry and Intact Neurological: Normal tone, Cranial nerves 3-12 NL. negative: Normal speech ( aphasia- expressive) Psych/Mental Status: Cooperative, Confused, Disoriented Lab/DI/Studies Reviewed: Laboratory Tests 08/09/16 08/09/16 11:27 11:27 WBC 8.8 Hgb 9.9 L D Hct 29.6 L Plt Count 257 Sodium 140 Potassium 3.9 Chloride 103 Carbon Dioxide 27 Anion Gap 14 BUN 14 Creatinine 0.80 Glucose 83 Calculated Osmolality 269 L Calcium 8.6 - Assessment (1) Anemia Acute D64.9 - ANEMIA, UNSPECIFIED Qualifiers: Anemia type: iron deficiency Iron deficiency anemia type: chronic blood loss Qualified Code(s): D50.0 - Iron deficiency anemia secondary to blood loss (chronic) Comment/Plan: Monitor counts (2) NSTEMI (non-ST elevated myocardial infarction) Acute I21.4 - NON-ST ELEVATION (NSTEMI) MYOCARDIAL INFARCTION Comment/Plan: Hemodynamically stable, asymptomatic. Troponins have peaked and are coming down now. Patient has been on appropriate medication including beta-lawrence, aspirin, full anticoagulation with Lovenox. Unfortunately now has developed falling H/H and GI bleed. Patient had echocardiogram with evidence of wall motion abnormality and prior infarction. Cardiology has seen, but he is not a candidate for any invasive therapy due to his advanced dementia. EKG also shows evidence of anterior ischemia. He is now 1 week s/p his acute IL. Lovenox had already been decreased to prophylactic dose. Will stop anticoagulant & ASA for now. (3) GI bleeding Acute K92.2 - GASTROINTESTINAL HEMORRHAGE, UNSPECIFIED Qualifiers: GI bleed type/associated pathology: unspecified gastrointestinal hemorrhage type Qualified Code(s): K92.2 - Gastrointestinal hemorrhage, unspecified Comment/Plan: Patient with recent IL, now heme + stools, and falling H/H. has been transfused 2 units PRBCs, continue to monitor. Was 12.9 on admission. Patient is poor communicator, due to prior stroke and expressive aphasia. Not a good candidate for anticoagulation. Will transfuse as needed, continue aspirin and Lovenox. (4) Closed left hip fracture Acute S72.002A - FRACTURE OF UNSP PART OF NECK OF LEFT FEMUR, INIT Qualifiers: Encounter type: subsequent encounter Comment/Plan: Status post surgical repair. Continue postop ortho care. Continue PT/OT (5) Fracture of clavicle, left, closed Acute S42.002A - FRACTURE OF UNSP PART OF LEFT CLAVICLE, INIT FOR CLOS FX Qualifiers: Encounter type: initial encounter Clavicle location: lateral end Fracture alignment: displaced Qualified Code(s): S42.032A - Displaced fracture of lateral end of left clavicle, initial encounter for closed fracture Comment/Plan: Continue splint (6) Adult failure to thrive Chronic R62.7 - ADULT FAILURE TO THRIVE Comment/Plan: BP is low today; monitor and hold meds as needed. Fluid bolus given. Continue nutritional support- patient needs assistance with feeding. (7) CAD (coronary artery disease) Chronic I25.10 - ATHSCL HEART DISEASE OF [place] CORONARY ARTERY W/O ANG PCTRS Qualifiers: Coronary Disease-Associated Artery/Lesion type: [place] artery [place] vs. transplanted heart: [place] heart Associated angina: without angina Qualified Code(s): I25.10 - Atherosclerotic heart disease of [place] coronary artery without angina pectoris Comment/Plan: Now with abnormal troponins. Continue aspirin beta-lawrence Ranexa and topical nitrates. 2D echo pending. Add full-dose Lovenox. Monitor serial troponins. (8) Acute kidney injury Acute N17.9 - ACUTE KIDNEY FAILURE, UNSPECIFIED Comment/Plan: Creatinine up to 1.9 today. Maintain hydration avoid any nephrotoxins monitor BMP (9) Dementia Chronic F03.90 - UNSPECIFIED DEMENTIA WITHOUT BEHAVIORAL DISTURBANCE Qualifiers: Dementia type: unspecified type Dementia behavioral disturbance: without behavioral disturbance Qualified Code(s): F03.90 - Unspecified dementia without behavioral disturbance Comment/Plan: Continue supportive care and medications. No significant behavior problems (10) Dyslipidemia Chronic E78.5 - HYPERLIPIDEMIA, UNSPECIFIED Comment/Plan: Continue statin - Plan Need to discuss Hospice with family and revisit code status.
[2016-08-09 11:45] LABS: MPV 8.2 fL (7.4-10.4)
[2016-08-09 11:54] LABS: BLOOD UREA NITROGEN 14 MG/DL (9-20); CALCIUM 8.6 MG/DL (8.4-10.2); CALCULATED OSMOLALITY 269 MOs/Kg (270-290); CHLORIDE 103 mEq/L (98-107); GLUCOSE 83 MG/DL (70-99); SODIUM LEVEL 140 mEq/L (137-146)
--- NOTE | 2016-08-09 12:03 | DIRPT ---
CLINICAL DATA: LEFT hip fracture. Wheezing inspiration. All inspiration EXAM: PORTABLE CHEST 1 VIEW COMPARISON: 08/02/2016 FINDINGS: Stable enlarged cardiac silhouette. There is increased airspace density in the medial RIGHT lower lobe. LEFT lower lobe atelectasis. IMPRESSION: New RIGHT lower lobe pneumonia versus aspiration pneumonitis. Electronically Signed By: Lawson Allen M.D. On: 08/09/2016 12:00
[2016-08-09] MEDS: PAROXETINE 20 MG TAB PO SCH (21:02)
[2016-08-09] MEDS: SIMVASTATIN 10 MG TAB PO SCH (21:04)
[2016-08-10 03:12] LABS: MPV 8.2 fL (7.4-10.4)
[2016-08-10 03:28] LABS: BLOOD UREA NITROGEN 15 MG/DL (9-20); CALCIUM 8.5 MG/DL (8.4-10.2); CALCULATED OSMOLALITY 265 MOs/Kg (270-290); CHLORIDE 101 mEq/L (98-107); GLUCOSE 91 MG/DL (70-99); SODIUM LEVEL 137 mEq/L (137-146)
[2016-08-10 04:11] VITALS: BMI 24.7
[2016-08-10] MEDS: PANTOPRAZOLE 40 MG TAB PO SCH (05:10)
[2016-08-10] MEDS: PEG-ELECTROLYTE 17 GM PACK PO SCH (07:22)
[2016-08-10] MEDS: AMLODIPINE 5 MG TAB PO SCH (08:32)
[2016-08-10] MEDS: METOPROLOL TARTRATE 25 MG TAB PO SCH ×2 (08:43→21:42)
[2016-08-10] MEDS: RANOLAZINE 500 MG EXT RELEASE TAB PO SCH ×2 (08:43→21:42)
[2016-08-10] MEDS: PROBIOTIC BLEND TAB PO SCH (08:44)
[2016-08-10] MEDS: VITAMINS,PRENATAL TABLET PO SCH (08:44)
[2016-08-10] MEDS: MEMANTINE 5 MG TAB PO SCH ×2 (08:44→21:44)
[2016-08-10] MEDS: PERPHENAZINE 2 MG TAB PO SCH ×2 (08:44→21:43)
[2016-08-10] MEDS: ASCORBIC ACID 500 MG TAB PO SCH (08:45)
[2016-08-10] MEDS: DONEPEZIL HCL 10 MG TAB PO SCH (08:45)
[2016-08-10] MEDS: FERROUS SULFATE 324 MG TAB PO SCH (08:46)
[2016-08-10] MEDS: D5-1/2NS/KCL 20 mEq 1,000 ML IV SCH (13:54)
--- NOTE | 2016-08-10 20:32 | GENMEDPROG ---
Chief Complaint: anemia, NSTEMI, FTT, GI Bleed, s/p recent hip fx, humerus fx, dementia, expressive aphasia Subjective Note: Patient is very frail, continues to decline. Discussed code status with family again and they have agreed upon DNR. Notes Reviewed: Yes Events from last night noted and discussed with Clinical Staff Current Medication List: Reviewed Currently: Reports: Cough, SCHMITT, Fredy PT/OT. Denies: Ambulating DVT Prophylaxis: Yes - Physical Examination Vital Signs and I&O: Last Vital Signs Temp 98.1 F 08/10/16 19:29 Pulse 81 08/10/16 19:29 Resp 20 08/10/16 19:29 BP 108/66 08/10/16 19:29 Pulse Ox 94 08/10/16 19:29 Oxygen Pulse Oxygen Saturation 94 O2 Device Room Air Oxygen Flow Rate 1.5 Fraction of Inspired Oxygen ( FIO2) Intake & Output 08/07/16 08/08/16 08/09/16 08/10/16 23:59 23:59 23:59 23:59 Intake Total 2756 3107 3643 1537 Balance 2756 3107 3643 1537 Patient's weight 71.724 kg 72.529 kg 72.167 kg 71.809 kg General: Cooperative, No acute distress, Weakness, Fatigue, Other (chronically ill appearing) HEENT: PERRLA, EOMI, Anicteric Sclera, Mucous membr. moist/pink Neck: Full range of motion, Normal Trachea alignment, Normal inspection, No Masses palpable Lymphatics: Normal Respiratory: Accessory Muscle Use, Diminished Cardiovascular: Normal S1, Normal S2, Irregular GI: Normal bowel sounds, Soft, Non tender, No masses Extremities/Musculoskeletal: DJD, Other (L arm in sling,) Skin: Warm,Dry and Intact Neurological: Normal tone, Cranial nerves 3-12 NL, Drowsy, Somnolent, Lethargy. negative: Normal speech (aphasia- expressive) Psych/Mental Status: Cooperative, Confused, Disoriented, Drowsy, Lethargic - Assessment (1) Anemia Acute D64.9 - ANEMIA, UNSPECIFIED Qualifiers: Anemia type: iron deficiency Iron deficiency anemia type: chronic blood loss Qualified Code(s): D50.0 - Iron deficiency anemia secondary to blood loss (chronic) Comment/Plan: Monitor counts (2) NSTEMI (non-ST elevated myocardial infarction) Acute I21.4 - NON-ST ELEVATION (NSTEMI) MYOCARDIAL INFARCTION Comment/Plan: Hemodynamically stable, asymptomatic. Troponins have peaked and are coming down now. Patient has been on appropriate medication including beta-lawrence, aspirin, full anticoagulation with Lovenox. Unfortunately now has developed falling H/H and GI bleed. Patient had echocardiogram with evidence of wall motion abnormality and prior infarction. Cardiology has seen, but he is not a candidate for any invasive therapy due to his advanced dementia. EKG also shows evidence of anterior ischemia. He is now 1 week s/p his acute IL. Lovenox had already been decreased to prophylactic dose. Will stop anticoagulant & ASA for now. (3) GI bleeding Acute K92.2 - GASTROINTESTINAL HEMORRHAGE, UNSPECIFIED Qualifiers: GI bleed type/associated pathology: unspecified gastrointestinal hemorrhage type Qualified Code(s): K92.2 - Gastrointestinal hemorrhage, unspecified Comment/Plan: Patient with recent IL, now heme + stools, and falling H/H. has been transfused 2 units PRBCs, continue to monitor. Was 12.9 on admission. Patient is poor communicator, due to prior stroke and expressive aphasia. Not a good candidate for anticoagulation. Will transfuse as needed, continue aspirin and Lovenox. (4) Closed left hip fracture Acute S72.002A - FRACTURE OF UNSP PART OF NECK OF LEFT FEMUR, INIT Qualifiers: Encounter type: subsequent encounter Comment/Plan: Status post surgical repair. Continue postop ortho care. Continue PT/OT (5) Adult failure to thrive Chronic R62.7 - ADULT FAILURE TO THRIVE Comment/Plan: BP is low today; monitor and hold meds as needed. Fluid bolus given. Continue nutritional support- patient needs assistance with feeding. (6) Fracture of clavicle, left, closed Acute S42.002A - FRACTURE OF UNSP PART OF LEFT CLAVICLE, INIT FOR CLOS FX Qualifiers: Encounter type: initial encounter Clavicle location: lateral end Fracture alignment: displaced Qualified Code(s): S42.032A - Displaced fracture of lateral end of left clavicle, initial encounter for closed fracture Comment/Plan: Continue splint (7) CAD (coronary artery disease) Chronic I25.10 - ATHSCL HEART DISEASE OF [place] CORONARY ARTERY W/O ANG PCTRS Qualifiers: Coronary Disease-Associated Artery/Lesion type: [place] artery [place] vs. transplanted heart: [place] heart Associated angina: without angina Qualified Code(s): I25.10 - Atherosclerotic heart disease of [place] coronary artery without angina pectoris Comment/Plan: Now with abnormal troponins. Continue aspirin beta-lawrence Ranexa and topical nitrates. 2D echo pending. Add full-dose Lovenox. Monitor serial troponins. (8) Acute kidney injury Acute N17.9 - ACUTE KIDNEY FAILURE, UNSPECIFIED Comment/Plan: Creatinine up to 1.9 today. Maintain hydration avoid any nephrotoxins monitor BMP (9) Dementia Chronic F03.90 - UNSPECIFIED DEMENTIA WITHOUT BEHAVIORAL DISTURBANCE Qualifiers: Dementia type: unspecified type Dementia behavioral disturbance: without behavioral disturbance Qualified Code(s): F03.90 - Unspecified dementia without behavioral disturbance Comment/Plan: Continue supportive care and medications. No significant behavior problems (10) Dyslipidemia Chronic E78.5 - HYPERLIPIDEMIA, UNSPECIFIED Comment/Plan: Continue statin - Plan Need to discuss Hospice with family and revisit code status. Case Care Discussed with: Patient, Family, Nursing Staff Education/Counseling Given To: Patient, Family Member Education/Counseling Given Regarding: Diagnosis, Treatment, Prognosis Code: 65874 (12+)
[2016-08-10] MEDS: SIMVASTATIN 10 MG TAB PO SCH (21:43)
[2016-08-10] MEDS: PAROXETINE 20 MG TAB PO SCH (21:44)
[2016-08-10] MEDS: OXYCODONE HCL 5 MG TABLET PO PRN (22:00)
[2016-08-11 04:40] LABS: MPV 8.7 fL (7.4-10.4)
[2016-08-11 04:51] LABS: BLOOD UREA NITROGEN 16 MG/DL (9-20); CALCIUM 8.6 MG/DL (8.4-10.2); CALCULATED OSMOLALITY 262 MOs/Kg (270-290); CHLORIDE 99 mEq/L (98-107); GLUCOSE 89 MG/DL (70-99); SODIUM LEVEL 136 mEq/L (137-146)
[2016-08-11] MEDS: PANTOPRAZOLE 40 MG TAB PO SCH (05:53)
[2016-08-11] MEDS: METOPROLOL TARTRATE 25 MG TAB PO SCH (09:51)
[2016-08-11] MEDS: PROBIOTIC BLEND TAB PO SCH (09:51)
[2016-08-11] MEDS: MEMANTINE 5 MG TAB PO SCH (09:51)
[2016-08-11] MEDS: ASCORBIC ACID 500 MG TAB PO SCH (09:51)
[2016-08-11] MEDS: PERPHENAZINE 2 MG TAB PO SCH (09:51)
[2016-08-11] MEDS: RANOLAZINE 500 MG EXT RELEASE TAB PO SCH (09:51)
[2016-08-11] MEDS: VITAMINS,PRENATAL TABLET PO SCH (09:51)
[2016-08-11] MEDS: DONEPEZIL HCL 10 MG TAB PO SCH (09:51)
[2016-08-11] MEDS: FERROUS SULFATE 324 MG TAB PO SCH (09:51)
[2016-08-11] MEDS: AMLODIPINE 5 MG TAB PO SCH (09:55)
[2016-08-11] MEDS: PEG-ELECTROLYTE 17 GM PACK PO SCH (10:50)
[2016-08-11] MEDS: D5-1/2NS/KCL 20 mEq 1,000 ML IV SCH (11:48)
--- NOTE | 2016-08-11 13:54 | PCM.DCS92 ---
- Final/Secondary Discharge Diagnosis (1) Closed left hip fracture Acute S72.002A - FRACTURE OF UNSP PART OF NECK OF LEFT FEMUR, INIT Present on Admission: Yes initial encounter S72.002A - Fracture of unspecified part of neck of left femur, initial encounter for closed fracture Comment: Status post surgical repair on 07/31/16. Continue postop ortho care. Continue PT/OT (2) NSTEMI (non-ST elevated myocardial infarction) Acute I21.4 - NON-ST ELEVATION (NSTEMI) MYOCARDIAL INFARCTION Present on Admission: Yes Comment: Patient suffered a post-operative [place] on 08/02/16. He is now hemodynamically stable, & asymptomatic. Troponins have peaked and are coming down now. Patient has been on appropriate medication including beta-lawrence, aspirin, full anticoagulation with Lovenox. Unfortunately now has developed falling H/H and GI bleed. Patient had echocardiogram with evidence of wall motion abnormality and prior infarction. Cardiology has been consulted, but he is not a candidate for any invasive therapy due to his advanced dementia. EKG also shows evidence of anterior ischemia. He is now 1 week s/p his acute [place]. Lovenox had already been decreased to prophylactic dose. Will stop anticoagulant & ASA now due to recurrent bleeding from GI tract. (3) Anemia Acute D64.9 - ANEMIA, UNSPECIFIED Present on Admission: Yes iron deficiency chronic blood loss D50.0 - Iron deficiency anemia secondary to blood loss (chronic) Comment: Monitor counts (4) GI bleeding Acute K92.2 - GASTROINTESTINAL HEMORRHAGE, UNSPECIFIED Present on Admission: Yes unspecified gastrointestinal hemorrhage type K92.2 - Gastrointestinal hemorrhage, unspecified Comment: Patient with recent [place], now heme + stools, and falling H/H. Has been transfused 2 units PRBCs, continue to monitor. Was 12.9 on admission. Patient is poor communicator, due to prior stroke and expressive aphasia. Not a good candidate for anticoagulation. Will transfuse as needed, stopped aspirin and Lovenox. (5) Adult failure to thrive Chronic R62.7 - ADULT FAILURE TO THRIVE Present on Admission: Yes Comment: BP is low today; monitor and hold meds as needed. Fluid bolus given. Continue nutritional support- patient needs assistance with feeding. (6) Fracture of clavicle, left, closed Acute S42.002A - FRACTURE OF UNSP PART OF LEFT CLAVICLE, INIT FOR CLOS FX initial encounter lateral end displaced S42.032A - Displaced fracture of lateral end of left clavicle, initial encounter for closed fracture Comment: Continue splint (7) CAD (coronary artery disease) Chronic I25.10 - ATHSCL HEART DISEASE OF [place] CORONARY ARTERY W/O ANG PCTRS Present on Admission: Yes [place] artery [place] heart without angina I25.10 - Atherosclerotic heart disease of [place] coronary artery without angina pectoris Comment: Now with abnormal troponins. Continue beta-lawrence, Ranexa, and topical nitrates. 2D echo shows mild systolic dysfunction with EF of 45% and diastolic dysfunction also. Patient doing well with medical management. (8) Acute kidney injury Acute N17.9 - ACUTE KIDNEY FAILURE, UNSPECIFIED Present on Admission: Yes Comment: Creatinine is 0.9 today. Maintain hydration, avoid any nephrotoxins, monitor BMP (9) Dementia Chronic F03.90 - UNSPECIFIED DEMENTIA WITHOUT BEHAVIORAL DISTURBANCE Present on Admission: Yes unspecified type without behavioral disturbance F03.90 - Unspecified dementia without behavioral disturbance Comment: Continue supportive care and medications. No significant behavior problems (10) Dyslipidemia Chronic E78.5 - HYPERLIPIDEMIA, UNSPECIFIED Present on Admission: Yes Comment: Continue statin Discharge Disposition: Prison Facility Discharge Condition: Improved Cognitive Discharge Status: Cognitive deficits prevent decision making for safety. Fuctional Discharge Status: Walker Assistance, Wheelchair Assistance, Fall Risk , Inability to drive due to severe medical illness, Deconditioning, Recent lower extremety joint replacement, Ambulatory Dysfunction, Post-op Weakness Physician Follow up/Referrals: Ray Walker MD [Primary Care Provider] - F/U Facility Physician New Prescriptions: Oxycodone Immediate Release [Oxycodone Immediate Release (OxyIR)] 5 mg PO Q4H PRN #100 tablet PRN Reason: Moderate To Severe Pain Discharge Home Medication List Donepezil HCl [Aricept] 10 mg PO DAILY 12/12/13 [History Confirmed 07/31/16 Last Taken 07/30/16 09:00] Simvastatin [Zocor] 10 mg PO HS 12/12/13 [History Confirmed 07/31/16 Last Taken 07/30/16 21:00] Ranolazine [Ranexa] 500 mg PO BID #60 ext 01/02/14 [Rx Confirmed 07/31/16 Last Taken 07/30/16 21:00] Acetaminophen [Mapap] 650 mg PO Q8H PRN 07/25/16 [History Confirmed 07/31/16 Last Taken 07/31/16] Acetyl/Methyl-B12/Lmefolate Ca [Metafolbic Plus Caplet] 1 tab PO DAILY 07/25/16 [History Confirmed 07/31/16 Last Taken 07/30/16 09:00] Ascorbic Acid [Vitamin C] 500 mg PO DAILY 07/25/16 [History Confirmed 07/31/16 Last Taken 07/30/16 09:00] Ferrous Sulfate [Feosol] 325 mg PO DAILY 07/25/16 [History Confirmed 07/31/16 Last Taken 07/30/16 09:00] Memantine HCl [Namenda] 5 mg PO BID 07/25/16 [History Confirmed 07/31/16 Last Taken 07/30/16 21:00] Metoprolol Tartrate [Lopressor] 12.5 mg PO BID 07/25/16 [History Confirmed 07/31 Last Taken 07/30/16 21:00] Paroxetine HCl [Paxil] 40 mg PO QHS 07/25/16 [History Confirmed 07/31/16 Last Taken 07/30/16 21:00] Perphenazine 2 mg PO BID 07/25/16 [History Confirmed 07/31/16 Last Taken 21:00] Polyethylene Glycol 3350 [Miralax] 17 gm PO DAILY 07/25/16 [History Confirmed Last Taken 07/30/16 09:00] Saccharomyces Boulardii [Florastor] 250 mg PO DAILY 07/25/16 [History Confirmed 07/31/16 Last Taken 07/30/16 09:00] Trazodone HCl 25 mg PO Q6H PRN 07/25/16 [History Confirmed 07/31/16 Last Taken 06/30/16] Vit B12/Lmefolate Ca/Vit B6/B2 [l-Methyl-Mc Tablet] 1 tab PO DAILY 07/25/16 [ History Confirmed 07/31/16 Last Taken 07/30/16 09:00] Calcium Carbonate 1,000 mg PO Q4H PRN 07/31/16 [History Confirmed 07/31/16 Last Taken Unknown] Cholecalciferol (Vitamin D3) [Optimal D3] 50,000 unit PO .MONTHLY ON THE [History Confirmed 07/31/16 Last Taken Unknown] Omeprazole [Prilosec] 20 mg PO BID 07/31/16 [History Confirmed 07/31/16 Last Taken 07/31/16 06:00] Ergocalciferol (Vitamin D2) [Vitamin D2 (ergocalciferol)] 50,000 units PO #30 capsule 08/11/16 [Rx Last Taken Unknown] Oxycodone Immediate Release [Oxycodone Immediate Release (OxyIR)] 5 mg PO Q4H PRN #100 tablet 08/11/16 [Rx Last Taken Unknown] O2 Device: Room Air Diet at Discharge: Heart Healthy Activity: As Tolerated, No Driving Call Office For: Worsening Symptoms, Fever over 101 F Discontinue use of:: Alcohol, All Types of Tobacco - DC Summary Notes Home Health Need / Prison Services:: Patient requires a skilled evaluation for rehabilitation services. To include Diet recommendations. Instruction on use of assistive devices for communication. Instruct and upgrade home exercise program and therapeutic exercises. Recommend home adaptation to facilitate communication for safety, pain and medication management. Due to the presence of Cardiac Changes and/or risk of deterioration a skilled Assessment and observation of cardiovascular status is required for this patient. This assessment could include but not limited to teaching, training of disease process and symptom management (diet, infection control, safety) and recognizing changes/decline in status. If appropriate to include education on oxygen use - safety, storage, reordering and need for a fire plan. Pulse Oximetry PRN for S/S respiratory distress. Due to the presence of Pulmonary Changes and/or risk of deterioration a skilled Assessment and observation of pulmonary status is required for this patient. This assessment could include but not limited to teaching, training of disease process and symptom management (diet, infection control, safety) and recognizing changes/decline in status. If appropriate to include education on oxygen use - safety, storage, reordering and need for a fire plan. Pulse Oximetry PRN for S/S respiratory distress. Hospital Course Note:: Discharge summary on patient named KATTY LICEA admitted to [facility] on 07/31/16 by Luis Fernando Vaz MD. Date of discharge is []. 80 yo man brought to emergency room from prison facility for evaluation of severe left hip pain and inability to bear weight on on the left. Due to underlying dementia patient himself unable to provide any specific details. According to [facility] patient has sustained a fall early on today and landed on the left side. Patient developed severe pain and was not able to put any weight on that leg. He was brought to emergency for evaluation was found to have left-sided intertrochanteric hip fracture. He also had a left humerus fracture. Medical consultation was phoned in for inpatient treatment. He was admitted to the medical service, and orthopedic consultation was obtained for repair of the hip fracture and evaluation of the humerus fracture on the left shoulder. Status post surgical repair of the hip fracture on . Continue postop ortho care. The humerus fracture was treated with a swathe and sling for immobilization. unfortunately, the patient suffered a post- operative [place] on 08/02/16. He is now hemodynamically stable, & asymptomatic. Troponins have peaked and are coming down now. Patient has been on appropriate medication including beta-lawrence, aspirin, full anticoagulation with Lovenox. Unfortunately now has developed falling H/H and GI bleed. Patient had echocardiogram with evidence of wall motion abnormality and prior infarction. Cardiology has been consulted, but he is not a candidate for any invasive therapy due to his advanced dementia. EKG also shows evidence of anterior ischemia. He is now 1 week s/p his acute [place]. Lovenox had already been decreased to prophylactic dose. Will stop anticoagulant & ASA now due to recurrent bleeding from GI tract. Continue beta-lawrence, Ranexa, and topical nitrates. 2D echo shows mild systolic dysfunction with EF of 45% and diastolic dysfunction also. Patient doing well with medical management. The patient now has heme + stools, and a falling H/H. He has been transfused 2 units PRBCs, continue to monitor. Hemoglobin was 12.9 on admission. Patient is poor communicator, due to prior stroke and expressive aphasia. Not a good candidate for anticoagulation. Will transfuse as needed, stopped aspirin and Lovenox in spite of his atrial fibrillation. He can take a proton pump inhibitor. If needed, he could start on 81 mg baby aspirin after 2 weeks. His current Hg is 8.4 g/dL. He had some transient problems with renal insufficiency, but this resolved with hydration. At this time he is felt to be stable for transfer back to the rehabilitation center. He will be discharged today back to [facility] for continued rehabilitation after his hip and shoulder fractures. Total Time: 45 min Code: 01648 (>30min.) - Physical Exam Vital Signs: Last Vital Signs Temp 98.6 F 08/11/16 11:55 Pulse 86 08/11/16 12:29 Resp 18 08/11/16 11:55 BP 94/52 L 08/11/16 11:55 Pulse Ox 93 08/11/16 11:55 Oxygen Pulse Oxygen Saturation 93 O2 Device Room Air Oxygen Flow Rate 1.5 Fraction of Inspired Oxygen ( FIO2) Constitutional: No apparent distress, Confused, Well appearing Oriented to: Not Oriented - HEENT Head: Normal Eye: Normal Oropharynx: Normal Tympanic Membrane: Dull ENT EAC: Normal Nose: No Symptoms Reported - Respiratory/Cardiovascular Respiratory: Normal - CTA, Diminished Cardiovascular: Irregular. negative: Bradycardia, Tachycardia - GI Auscultation: Normal Palpation: Normal Tenderness: Non tender Rectal Exam: Deferred - Musculoskeletal Back: Normal Extremities: Pedal Pulse (NORMAL), Other (DJD, L ARM IN SLING). negative: Calf Tenderness - Integumentary Skin: Warm, Dry Lymphatics: Normal - Neurologic Memory Impaired: Short-term Motor Function: Abnormal (WEAKNESS OF LEGS) Cranial Nerve: Normal Cerebellar: Ataxia Mood Description: Flat Thought: Rambling Conversation Perception: Normal
[2016-08-11 15:23] VITALS: BP 92/60; TEMP 98.2
[2016-08-11 15:45] VITALS: PULSE 88
[2016-08-17] MEDS ORDERED: ERGOCALCIFEROL (VITAMIN D2) 50000 UNITS CAP PO SCH (12:00)
== END 2016-08-11 17:20 | DRG 480 ==
LOC: ED 08:53 → MPS3 10:47 → PCU 08-02 02:33
PROVIDERS: ADMIT Internal Medicine; ATTEND Family Medicine
PROC: 0QH736Z Insertion of Intramedullary Internal Fixation Device into Left Upper Femur, Percutaneous Approach (ICD-10-PCS; principal; 2016-07-31 15:00)
PROC: 30233N1 Transfusion of Nonautologous Red Blood Cells into Peripheral Vein, Percutaneous Approach (ICD-10-PCS; 2016-08-08)
DX: S72.002A Fracture of unspecified part of neck of left femur, initial encounter for closed fracture (principal); I21.4 Non-ST elevation (NSTEMI) myocardial infarction; N17.9 Acute kidney failure, unspecified; G30.9 Alzheimer's disease, unspecified; I10 Essential (primary) hypertension; D64.9 Anemia, unspecified; S42.032A Displaced fracture of lateral end of left clavicle, initial encounter for closed fracture; F02.80 Dementia in other diseases classified elsewhere, unspecified severity, without behavioral disturbance, psychotic disturbance, mood disturbance, and anxiety; K92.2 Gastrointestinal hemorrhage, unspecified; N30.00 Acute cystitis without hematuria; I97.191 Other postprocedural cardiac functional disturbances following other surgery; I51.89 Other ill-defined heart diseases; K21.9 Gastro-esophageal reflux disease without esophagitis; E78.5 Hyperlipidemia, unspecified; I25.10 Atherosclerotic heart disease of native coronary artery without angina pectoris; I69.320 Aphasia following cerebral infarction; M81.0 Age-related osteoporosis without current pathological fracture; I25.2 Old myocardial infarction; Z66 Do not resuscitate; Z79.82 Long term (current) use of aspirin; R62.7 Adult failure to thrive; Y83.1 Surgical operation with implant of artificial internal device as the cause of abnormal reaction of the patient, or of later complication, without mention of misadventure at the time of the procedure; Z79.899 Other long term (current) drug therapy; D50.0 Iron deficiency anemia secondary to blood loss (chronic); W19.XXXA Unspecified fall, initial encounter; Y92.129 Unspecified place in nursing home as the place of occurrence of the external cause
CPT/HCPCS: 36415; 36430; 51798; 70450; 71010; 73521; 80048; 80053; 81001; 82962; 83605; 83690; 83735; 83874; 83880; 84443; 84484; 85014; 85018; 85025; 85027; 85379; 85610; 85730; 86850; 86900; 86901; 86920; 87040; 87086; 87641; 90471; 90656; 93005; 93306; 96372; 96374; 97162; 97164; 97166; 99285; G0237; J0690; J0696; J1170; J1650; J1940; J2001; J2270; J3010; J3490; J7060; J7070; P9016